=== PATIENT | male | born 1945 | race American Indian/Alaskan Native ===

== ENCOUNTER 2017-06-26 12:54 | Inpatient (IN) | payer MEDICARE ==
[2017-06-26] MEDS ORDERED: DILAUDID IV PRN (13:28)
[2017-06-26] MEDS ORDERED: D50W (25GM) Syringe IV PRN (14:21)
[2017-06-26] MEDS ORDERED: LOVENOX SUB-Q SCH (16:00)
[2017-06-26 16:54] LABS: Basophils % (Auto) 0.9 % (0.0-1.8); Eosinophils % (Auto) 1.8 % (0.0-4.3); Hematocrit 48.1 % (35.5-45.6); Hemoglobin 15.5 gm/dl (11.8-15.2); Mean Corpuscular HGB Conc 32 % (32-34); Mean Corpuscular Hemoglobin 28 pg (28-32); Mean Corpuscular Volume 87 fl (84-94); Platelet Count 272 K/mm3 (140-440); Red Blood Count 5.52 M/mm3 (3.65-5.03); Red Cell Distribution Width 17.2 % (13.2-15.2); White Blood Count 9.1 K/mm3 (4.5-11.0)
[2017-06-26 17:05] LABS: Alanine Aminotransferase 26 units/L (7-56); Albumin 4.5 g/dL (3.9-5); Albumin/Globulin Ratio 1.4 %; Alkaline Phosphatase 118 units/L (35-129); Anion Gap 22 mmol/L; BUN/Creatinine Ratio 16; Blood Urea Nitrogen 18 mg/dL (9-20); Calcium 9.7 mg/dL (8.4-10.2); Carbon Dioxide 26 mmol/L (22-30); Chloride 99.4 mmol/L (98-107); Glucose 211 mg/dL (75-100); Potassium 3.1 mmol/L (3.6-5.0); Sodium 144 mmol/L (137-145); Total Protein 7.8 g/dL (6.3-8.2)
[2017-06-26] MEDS: D5NS 1,000 ML IV SCH (17:15)
[2017-06-26] MEDS: NOVOLOG SUB-Q SCH (19:07)
--- NOTE | 2017-06-26 22:04 | Event Note ---
Date: 06/26/17 See dictated H/p in reports Acute cholecystitis
[2017-06-26] MEDS ORDERED: TYLENOL PO PRN (23:00)
[2017-06-26] MEDS ORDERED: ZOFRAN IV PRN (23:00)
[2017-06-26] MEDS ORDERED: MILK OF MAGNESIA PO PRN (23:00)
[2017-06-26] MEDS ORDERED: DULCOLAX PR PRN (23:00)
[2017-06-27] MEDS: NOVOLOG SUB-Q SCH ×3 (04:17→17:49)
[2017-06-27] MEDS: D5NS 1,000 ML IV SCH (04:18)
[2017-06-27] MEDS: PEPCID IV SCH ×3 (04:30→22:49)
--- NOTE | 2017-06-27 06:22 | Ultrasound Report ---
FINAL REPORT PROCEDURE: US ABDOMEN LIMITED TECHNIQUE: Real-time sonography in multiple planes of the gallbladder fossa and CBD with imaging of the adjacent liver, pancreas, and right kidney was performed with image documentation. CPT 28252 HISTORY: RT. ABDOMINAL PAIN COMPARISON: No prior studies are available for comparison. FINDINGS: Liver: Liver is heterogeneous and hyperechoic suggesting fatty infiltration. There is no discrete mass. Liver was not measured.. Gallbladder: Fluid filled. No gallstones, wall thickening, or pericholecystic fluid. Patient reports positive sonographic Jolley sign. Intrahepatic bile ducts: Normal . Extrahepatic bile ducts: Normal . Pancreas: Normal as visualized with suboptimal depiction of the pancreatic tail. Right kidney: Normal echotexture. No focal renal mass, calculus, or hydronephrosis. Other: No free fluid. IMPRESSION: There are no gallstones. There is no wall thickening or pericholecystic fluid. The bile ducts are normal in caliber. The liver is fatty.
[2017-06-27] MEDS ORDERED: CATAPRES-TTS PATCH TD SCH (10:00)
--- NOTE | 2017-06-27 10:32 | Consultation ---
History of Present Illness Consult date: 06/27/17 Reason for consult: abdominal pain Requesting physician: NGA EDWARDS Chief complaint: abd pain - History of present illness History of present illness: attempted to see patient at 1015 but out of room for CT scan. Patient is a 71-year-old male with a past medical history diabetes and hypertension who presented to the hospital with complaints of right upper quadrant pain for the last 4 days. The patient states the pain started 4 days prior to presentation, was sharp in nature, and constant. He states he had large meals during Thanksgiving time. He has never had pain like this in the past. He states that this pain is also associated with a intermittent pain in the left upper quadrant which quickly resolved. The pain now is dull. He denies any episodes of nausea or emesis. No fevers, chills. No chest pain or shortness of breath. He also complains of dysuria and increased frequency in urination. The patient is currently tolerating a clear liquid diet Past History Past Medical History: diabetes, hypertension Past Surgical History: tonsillectomy Social history: no significant social history Family history: no significant family history Medications and Allergies Allergies Allergy/AdvReac Type Severity Reaction Status Date / Time No Known Allergies Allergy Unverified 06/26/17 12:58 Home Medications Medication Instructions Recorded Confirmed Last Taken Type Diltiazem ER 240 mg PO DAILY 06/26/17 06/26/17 06/26/17 History 240mg Hydrochlorothiazide 25 mg PO DAILY 06/26/17 06/26/17 06/26/17 History 25mg Jentadueto 2.5 mg-1000 mg 2.5 mg PO BID 06/26/17 06/26/17 06/26/17 History Losartan 100 mg PO DAILY 06/26/17 06/26/17 06/26/17 History Active Meds: Active Medications Acetaminophen (Tylenol) 650 mg PO Q4H PRN PRN Reason: Pain MILD(1-3)/Fever >100.5/FINNEGAN Bisacodyl (Dulcolax) 10 mg MO QDAY PRN PRN Reason: Constipation unrelieved by MOM Clonidine HCl (Catapres-Tts Patch) 0.2 mg TD We WALKER Dextrose (D50w (25gm) Syringe) 50 ml IV PRN PRN PRN Reason: Hypoglycemia Enoxaparin Sodium (Lovenox) 40 mg SUB-Q QDAY@2200 WALKER Famotidine (Pepcid) 20 mg IV BID WALKER Last Admin: 06/27/17 04:30 Dose: 20 mg Hydromorphone HCl (Dilaudid) 1 mg IV Q3H PRN PRN Reason: Pain, Moderate (4-6) Last Admin: 06/26/17 15:28 Dose: 1 mg Dextrose/Sodium Chloride (D5ns) 1,000 mls @ 100 mls/hr IV DIRECT WALKER Last Admin: 06/27/17 04:18 Dose: 100 mls/hr Insulin Aspart (Novolog) 0 units SUB-Q Q6HR WALKER PRN Reason: Protocol Last Admin: 06/27/17 04:17 Dose: Not Given Magnesium Hydroxide (Milk Of Magnesia) 30 ml PO Q4H PRN PRN Reason: Constipation Ondansetron HCl (Zofran) 4 mg IV Q8H PRN PRN Reason: N/V unrelieved by Reglan Review of Systems All systems: negative (see hpi) Exam Vital Signs Resp Pulse Ox 18 95 06/26/17 14:33 06/26/17 14:33 Narrative exam: Renal: Awake, alert, oriented 3. No apparent distress CV: S1, S2 present Respiratory: No audible wheezes Abdomen: Soft, obese, nondistended. There is mild tenderness to palpation in the right upper quadrant without rebound rigidity or guarding. There is a reducible, nontender umbilical hernia. Cavities: No clubbing, cyanosis, edema Results - Labs 06/26/17 15:45 06/26/17 14:42 Abnormal lab results 06/26/17 06/26/17 06/26/17 Range/Units 14:42 14:42 15:45 RBC 5.52 H (3.65-5.03) M/mm3 Hgb 15.5 H (11.8-15.2) gm/dl Hct 48.1 H (35.5-45.6) % RDW 17.2 H (13.2-15.2) % Potassium 3.1 L (3.6-5.0) mmol/L Glucose 211 H (75-100) mg/dL POC Glucose (70-105) Hemoglobin A1c 7.1 H (4-6) % 06/26/17 06/26/17 06/26/17 Range/Units 16:05 16:41 19:09 RBC (3.65-5.03) M/mm3 Hgb (11.8-15.2) gm/dl Hct (35.5-45.6) % RDW (13.2-15.2) % Potassium (3.6-5.0) mmol/L Glucose (75-100) mg/dL POC Glucose 172 H 162 H 210 H (70-105) Hemoglobin A1c (4-6) % 06/26/17 06/27/17 Range/Units 22:08 04:03 RBC (3.65-5.03) M/mm3 Hgb (11.8-15.2) gm/dl Hct (35.5-45.6) % RDW (13.2-15.2) % Potassium (3.6-5.0) mmol/L Glucose (75-100) mg/dL POC Glucose 233 H 170 H (70-105) Hemoglobin A1c (4-6) % Diabetes panel 06/26/17 06/26/17 Range/Units 14:42 14:42 Sodium 144 (137-145) mmol/L Potassium 3.1 L (3.6-5.0) mmol/L Chloride 99.4 (98-107) mmol/L Carbon Dioxide 26 (22-30) mmol/L BUN 18 (9-20) mg/dL Creatinine 1.1 (0.8-1.5) mg/dL Glucose 211 H (75-100) mg/dL Hemoglobin A1c 7.1 H (4-6) % Calcium 9.7 (8.4-10.2) mg/dL AST 20 (5-40) units/L ALT 26 (7-56) units/L Alkaline Phosphatase 118 (35-129) units/L Total Protein 7.8 (6.3-8.2) g/dL Albumin 4.5 (3.9-5) g/dL Thyroid panel 06/26/17 Range/Units 14:42 TSH 0.823 (0.270-4.200) mlU/mL Calcium panel 06/26/17 Range/Units 14:42 Calcium 9.7 (8.4-10.2) mg/dL Albumin 4.5 (3.9-5) g/dL Pituitary panel 06/26/17 06/26/17 Range/Units 14:42 14:42 Sodium 144 (137-145) mmol/L Potassium 3.1 L (3.6-5.0) mmol/L Chloride 99.4 (98-107) mmol/L Carbon Dioxide 26 (22-30) mmol/L BUN 18 (9-20) mg/dL Creatinine 1.1 (0.8-1.5) mg/dL Glucose 211 H (75-100) mg/dL Calcium 9.7 (8.4-10.2) mg/dL TSH 0.823 (0.270-4.200) mlU/mL Adrenal panel 06/26/17 Range/Units 14:42 Sodium 144 (137-145) mmol/L Potassium 3.1 L (3.6-5.0) mmol/L Chloride 99.4 (98-107) mmol/L Carbon Dioxide 26 (22-30) mmol/L BUN 18 (9-20) mg/dL Creatinine 1.1 (0.8-1.5) mg/dL Glucose 211 H (75-100) mg/dL Calcium 9.7 (8.4-10.2) mg/dL Total Bilirubin 0.20 (0.1-1.2) mg/dL AST 20 (5-40) units/L ALT 26 (7-56) units/L Alkaline Phosphatase 118 (35-129) units/L Total Protein 7.8 (6.3-8.2) g/dL Albumin 4.5 (3.9-5) g/dL - Imaging CT scan - abdomen: report reviewed, image reviewed (No acute intra-abdominal pathology.) CT scan - pelvis: report reviewed, image reviewed US - abdomen: report reviewed, image reviewed (Fluid-filled gallbladder. NO Gallbladder wall thickening, stones, or pericholecystic fluid.) Assessment and Plan -year-old male with right upper quadrant pain, dysuria 1. Imaging and labs reviewed - no evidence of acute cholecystitis 2. Patient is tolerating a liquid diet -> adv to low fat diet this PM for dinner 3. Pt councelled on low fat diet 4. ok for dc from surgery standpoint if tolerates a diet, may follow up electively for cholecystectomy if he chooses 5. urinalysis
--- NOTE | 2017-06-27 11:05 | Cat Scan Report ---
CT ABDOMEN AND PELVIS WITH CONTRAST INDICATION: Right upper quadrant pain. COMPARISON: RUQ ultrasound from yesterday and 12/23/2011 CT. FINDINGS: Abdomen and pelvis CT performed following oral contrast and intravenous administration of 100 cc of Omnipaque 300. LUNG BASES: Slight nonspecific distal esophageal prominence/thickening again noted. No effusions. Normal heart size. ABDOMEN: Liver again visually somewhat hypodense and possibly fat infiltrated. Indeterminate 3 mm right lower hepatic hypodensity, axial image 27, series 2. Otherwise unremarkable liver, spleen, gallbladder, pancreas, adrenals, non-aneurysmal abdominal aorta with atherosclerotic aortoiliac calcifications, IVC and non-hydronephrotic kidneys. No ascites or size significant adenopathy. Opacified GI tract nonobstructive. Normal appendix. Small fat-containing umbilical hernia again seen with a transverse neck of 1.6 cm. PELVIS: Prominent/mildly enlarged prostate creating an impression at the bladder base may again be correlated for clinically and with PSA. Tiny prostatic calcifications. Otherwise grossly unremarkable urinary bladder and seminal vesicles. Mild rectosigmoid stool. Mild distal descending colon and proximal sigmoid diverticulosis. No free fluid or significant adenopathy. Approximately 3.2 cm fat-containing right inguinal hernia again partially imaged, axial image 87. Multilevel spinal degenerative changes, including lower thoracic right-sided osteophytes and lower lumbar facet arthropathy. CONCLUSION: No acute CT abnormality or significant interval change with various incidental findings, including possible fatty hepatic infiltration, diverticulosis and fat containing umbilical and right inguinal hernias again noted, amongst others, as detailed above. Thank you for the opportunity to participate in this patient's care.
--- NOTE | 2017-06-27 11:38 | History and Physical Report ---
The patient has a right upper quadrant pain for the past 3-4 days. HISTORY OF PRESENT ILLNESS: A 71-year-old male with hypertension, type 2 diabetes who comes in for right upper quadrant and epigastric pain for the last 4 days. Associated with nausea, but no vomiting. Pain is about 8 on a scale of 1-10. No constipation. Pain is sharp in nature, mostly in the right upper quadrant, but sometimes radiating into the epigastric region. No fever, no chills. PAST MEDICAL HISTORY: As mentioned, hypertension and type 2 diabetes. PAST SURGICAL HISTORY: None. SOCIAL HISTORY: Does not smoke, no alcohol, no recreational drugs. FAMILY HISTORY: Hypertension. REVIEW OF SYSTEMS: Significant for right upper quadrant pain, which is 8/10, associated with nausea. Otherwise, review of systems is essentially negative. PHYSICAL EXAMINATION: GENERAL: Elderly male, cooperative during examination. VITAL SIGNS: Blood pressure is 154/76, temperature is 98.4, pulse is 82, respirations are 18. HEENT: Unremarkable. Pupils equal and reactive. NECK: Supple, no lymphadenopathy, no thyromegaly. LUNGS: Clear to auscultation and percussion. Good air entry. CARDIOVASCULAR: S1, S2 heard. No gallop, no murmur, no rub. Apical impulse in left fifth intercostal space and midclavicular line. ABDOMEN: Soft, tender in the right upper quadrant region, in the epigastric region. No guarding, no rebound tenderness. Hernial orifices are normal. Bowel sounds are normal. EXTREMITIES: Good pedal pulses. CENTRAL NERVOUS SYSTEM: Alert and oriented x 4, nonfocal exam. LABORATORY DATA: Significant for white count of 9100; H and H is 15.5 and 48.8; platelet count is 272,000. Glucose is 210, 233 and 170. A1c is 7.1. Potassium is 3.1, otherwise electrolytes are normal. ASSESSMENT AND PLAN: 1. Acute cholecystitis. Ultrasound shows fluid filled gallbladder, no gallstones, no wall thickening. Intrahepatic bile ducts, left and right hepatic bile ducts are normal. The impression was no gallstones and no wall thickening or pericholecystic fluid. We will treat as acute cholecystitis ____ the patient. Pain control in the meantime. Dilaudid 1 mg q. 3 hours and Zofran 4 mg q. 3 hours p.r.n. We will defer to Dr. Whippel who is a surgeon in the hospital. 2. Hypertension. Continue hydrochlorothiazide and diltiazem, but we have kept on hold and also losartan. We will put the patient on Catapres patch TTS 2 q. weekly. 3. Type 2 diabetes. We will hold the Epi and continue him on insulin a.c. and at bedtime and moderate dose sliding scale protocol. JOB# [id number] VSM/NTS
--- NOTE | 2017-06-27 16:24 | Progress Note ---
Assessment and Plan - Patient Problems (1) Acute abdominal pain Current Visit: Yes Status: Acute Plan to address problem: Nearly resolved Cholecystitis ruled out.Advance diet as tolerated Surgery consult appreciated (2) HTN (hypertension) Current Visit: Yes Status: Chronic Qualifiers: Hypertension type: essential hypertension Qualified Code(s): I10 - Essential (primary) hypertension Plan to address problem: Antihypertensives resumed (3) T2DM (type 2 diabetes mellitus) Current Visit: Yes Status: Chronic Qualifiers: Diabetes mellitus complication status: without complication Diabetes mellitus joint terminal attack controller insulin use: without joint terminal attack controller use Qualified Code(s): E11.9 - Type 2 diabetes mellitus without complications Plan to address problem: Adjust hypoglycemics Patient josesito Chowdary To Follow with DR Patel (4) Hypokalemia Current Visit: Yes Status: Acute Plan to address problem: Supplemented (5) Discharge planning issues Current Visit: Yes Status: Acute Plan to address problem: Probable discharge tomorrow (6) DVT prophylaxis Current Visit: Yes Status: Acute Plan to address problem: On Lovenox Subjective Date of service: 06/27/17 Principal diagnosis: Acute cholecystitis Interval history: Abd pain better.Tolerating clear liquids Objective - Constitutional Vitals: Vital Signs - 12hr 06/27/17 06/27/17 06/27/17 07:27 07:30 10:53 Temperature 98.6 F Pulse Rate 66 61 Respiratory 18 Rate Blood Pressure 150/71 Blood Pressure 150/71 [Left] O2 Sat by Pulse 96 94 Oximetry 06/27/17 06/27/17 15:35 15:36 Temperature 98.3 F Pulse Rate 71 73 Respiratory 20 Rate Blood Pressure Blood Pressure 151/62 [Left] O2 Sat by Pulse 95 95 Oximetry General appearance: Present: no acute distress, well-nourished - EENT Eyes: PERRL, EOM intact ENT: hearing intact, clear oral mucosa Ears: bilateral: normal - Neck Neck: supple, normal ROM - Respiratory Respiratory effort: normal Respiratory: bilateral: CTA - Breasts Breasts: normal - Cardiovascular Rhythm: regular Heart Sounds: Present: S1 & S2. Absent: gallop, rub Extremities: pulses intact, No edema, normal color, Full ROM - Gastrointestinal General gastrointestinal: Present: soft, non-tender, non-distended, normal bowel sounds - Genitourinary Male genitourinary: normal - Integumentary Integumentary: clear, warm, dry - Musculoskeletal Musculoskeletal: 1, strength equal bilaterally - Neurologic Neurologic: moves all extremities - Psychiatric Psychiatric: memory intact, appropriate mood/affect, intact judgment & insight - Labs CBC & Chem 7: 06/26/17 15:45 06/26/17 14:42 Labs: Abnormal lab results 06/26/17 06/26/17 06/26/17 Range/Units 14:42 14:42 15:45 RBC 5.52 H (3.65-5.03) M/mm3 Hgb 15.5 H (11.8-15.2) gm/dl Hct 48.1 H (35.5-45.6) % RDW 17.2 H (13.2-15.2) % Potassium 3.1 L (3.6-5.0) mmol/L Glucose 211 H (75-100) mg/dL POC Glucose (70-105) Hemoglobin A1c 7.1 H (4-6) % 06/26/17 06/26/17 06/26/17 Range/Units 16:05 16:41 19:09 RBC (3.65-5.03) M/mm3 Hgb (11.8-15.2) gm/dl Hct (35.5-45.6) % RDW (13.2-15.2) % Potassium (3.6-5.0) mmol/L Glucose (75-100) mg/dL POC Glucose 172 H 162 H 210 H (70-105) Hemoglobin A1c (4-6) % 06/26/17 06/27/17 06/27/17 Range/Units 22:08 04:03 11:24 RBC (3.65-5.03) M/mm3 Hgb (11.8-15.2) gm/dl Hct (35.5-45.6) % RDW (13.2-15.2) % Potassium (3.6-5.0) mmol/L Glucose (75-100) mg/dL POC Glucose 233 H 170 H 185 H (70-105) Hemoglobin A1c (4-6) %
[2017-06-27 16:55] LABS: Bilirubin,Urine NEG (Negative); Blood,Urine NEG (Negative); Ketones,Urine NEG (Negative); Leukocyte Esterase,Urine NEG (Negative); Mucus,Urine FEW /HPF; Nitrite,Urine NEG (Negative); Protein,Urine <15 mg/dL mg/dL (Negative); Urobilinogen,Urine < 2.0 mg/dL (<2.0); WBC,Urine < 1.0 /HPF (0.0-6.0)
[2017-06-27] MEDS ORDERED: LOVENOX SUB-Q SCH (22:00)
[2017-06-28] MEDS: NOVOLOG SUB-Q SCH ×2 (00:44→06:39)
[2017-06-28 07:45] VITALS: BP 157/78
[2017-06-28] MEDS ORDERED: K-DUR PO ONE (07:45)
[2017-06-28] MEDS ORDERED: JENTADUETO PO SCH (10:00)
[2017-06-28] MEDS ORDERED: DILTIAZEM 240 MG PO SCH (10:00)
--- NOTE | 2017-06-28 10:08 | Discharge Summary ---
Providers - Providers Date of Admission: 06/26/17 14:01 Date of discharge: 06/28/17 Attending physician: CHENTE LARKIN MD 06/26/17 23:01 Consult to Physician [CONS] Routine Consulting Provider: MERLY MERRITT Reason For Exam: Ruq pain Place consult to:: answering service Notified:: yes If yes, spoke with:: gaudencio Time called:: 08:05 Comment:: rosie Primary care physician: ALISTAIR BUCHANAN Hospitalization Reason for admission: abdominal pain Pertinent studies: Abdominal ultrasound, negative for acute cholecystitis or cholelithiasis. CT abdomen and pelvis - No acute CT abnormality or significant interval change with various incidental findings, including possible fatty hepatic infiltration, diverticulosis and fat-containing umbilical and right inguinal hernias again noted. Hospital course: 71 year old male with past medical history significant for hypertension, type 2 diabetes mellitus presented for the complaints of right upper quadrant and epigastric pain for the last 4 days. The pain was associated with nausea and vomiting. Pain was sharp in nature and 8 out of 10 in its maximum. No fever or chills. Patient was admitted and managed appropriately for abdominal pain. Surgery was consulted and patient doesn't need any intervention at this time. Acute cholecystitis was ruled out. Patient's abdominal pain subsided, patient tolerated diet. Patient was counseled about avoid fatty diets. Patient was hemodynamically stable at the time of discharge. Patient said he has enough medications at home and doesn't need any refills. I also deemed to be scheduled with the surgeon in case if he needs elective cholecystectomy, he said if he has pain he will schedule himself. Disposition: TO HOME OR SELFCARE Time spent for discharge: 31 minutes - Discharge Diagnoses (1) Acute abdominal pain Status: Acute (2) Hypokalemia Status: Acute (3) HTN (hypertension) Status: Chronic Qualifiers: Hypertension type: essential hypertension Qualified Code(s): I10 - Essential (primary) hypertension (4) T2DM (type 2 diabetes mellitus) Status: Chronic Qualifiers: Diabetes mellitus complication status: without complication Diabetes mellitus skilled nursing insulin use: without skilled nursing use Qualified Code(s): E11.9 - Type 2 diabetes mellitus without complications (5) Acute cholecystitis Status: Ruled-out Core Measure Documentation - Palliative Care Palliative Care/ Comfort Measures: Not Applicable - Core Measures Any of the following diagnoses?: none Exam - Constitutional Vitals: Temp Pulse Resp BP Pulse Ox 98.1 F 62 18 157/78 94 06/28/17 07:42 06/28/17 07:42 06/28/17 07:42 06/28/17 07:42 06/28/17 07:42 Plan Activity: no restrictions Weight Bearing Status: Full Weight Bearing Diet: low cholesterol, low salt, diabetic Follow up with: ALISTAIR BUCHANAN MD [Primary Care Provider] - 7 Days
[2017-06-28] MEDS: PEPCID IV SCH (10:30)
[2017-06-28] MEDS ORDERED: CARDIZEM CD PO SCH (12:00)
[2017-06-28] MEDS ORDERED: GLUCOPHAGE PO SCH (22:00)
[2017-06-28] MEDS ORDERED: TRADJENTA PO SCH (22:00)
[2017-06-29] MEDS ORDERED: HCTZ PO SCH (10:00)
[2017-06-29] MEDS ORDERED: COZAAR PO SCH (10:00)
== END 2017-06-28 11:55 | disposition home or self-care (01) | DRG 392 ==
LOC: 2B-ACE 12:54 → UNDOADMIN 12:54 → 2B-ACE 14:01
PROVIDERS: ADMIT Internal Medicine; ATTEND Internal Medicine
DX: R10.11 Right upper quadrant pain (principal); R30.0 Dysuria; I10 Essential (primary) hypertension; E11.9 Type 2 diabetes mellitus without complications; E87.6 Hypokalemia; R10.13 Epigastric pain; R11.2 Nausea with vomiting, unspecified; Z82.49 Family history of ischemic heart disease and other diseases of the circulatory system; Z79.899 Other long term (current) drug therapy
CPT/HCPCS: 36415; 74177; 76705; 80053; 81001; 82962; 83036; 84443; 85025; J1170; J1650; J1815; J7042; Q9967

== ENCOUNTER 2019-03-05 12:04 | Outpatient (CLI) | payer MEDICARE ==
--- NOTE | 2019-03-05 14:30 | Ultrasound Report ---
ULTRASOUND TESTICULAR DOPPLER COMPLETE HISTORY: Scrotal pain. TECHNIQUE: Grayscale ultrasound with color and spectral Doppler imaging. COMPARISON: None. FINDINGS: The right testicle measures 2.7 x 1.7 x 1.7 cm. There are 2 cysts in the right testicle measuring 1.1 cm and 0.8 cm. No testicular mass. The right epididymis is unremarkable. The left testicle measures 2.4 x 1.3 x 2.3 cm. There are also 2 cysts in the left testicle measuring 0.6 cm and 0.3 cm. No testicular mass. The left epididymis is unremarkable. No evidence for significant hydrocele or varicocele. Spectral Doppler waveforms demonstrate arterial flow bilaterally. IMPRESSION: Bilateral testicular cysts as described. Signer Name: Clayton Hernandez Jr, MD Signed: 03/05/2019 2:26 PM Workstation Name: [id number]
== END 2019-03-05 12:05 | disposition home or self-care (01) ==
LOC: US 12:04
PROVIDERS: ATTEND Urology
DX: N44.2 Benign cyst of testis (principal); E11.9 Type 2 diabetes mellitus without complications; E66.9 Obesity, unspecified; I10 Essential (primary) hypertension
CPT/HCPCS: 93975

== ENCOUNTER 2020-10-02 11:28 | Inpatient (IN) | payer MEDICARE ==
--- NOTE | 2020-10-02 11:45 | Event Note ---
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 Further treatment and workup at subsequent clinical providers discretion. Patient/guardian urged not to elope from the ED as their condition may be serious if not clinically assessed and managed. Initial orders include: labs, ekg, xr
--- NOTE | 2020-10-02 12:12 | XRay Report ---
CHEST 2 VIEWS INDICATION: SOB. COMPARISON: None FINDINGS: SUPPORT DEVICES: None. HEART: Within normal limits. LUNGS/PLEURA: Mild patchy multifocal airspace disease with some symmetry and no pleural effusion. Fin dings could be seen with edema or an atypical process such as viral disease. No pneumothorax. ADDITIONAL FINDINGS: None. IMPRESSION: 1. Pulmonary findings as above. Signer Name: Tino Gutierrez MD Signed: 10/02/2020 12:07 PM Workstation Name: [id number]
--- NOTE | 2020-10-02 12:18 | Emergency Department Report ---
HPI - General Chief Complaint: Dyspnea/Respdistress Time Seen by Provider: 10/02/20 11:42 - HPI HPI: This is a 75-year-old -[place] male presents to the emergency department via EMS from home with a complaint of a 3 to 4-day history of progressively worsening shortness of breath. The shortness of breath worsens with any type of exertion. Patient has a past medical history of hypertension, diabetes and obstructive sleep apnea. The patient admits to some recent noncompliance with his CPAP machine. He denies any fever, cough, lower extremity swelling, chest pain, nausea, vomiting, back pain or diaphoresis. He denies being a tobacco smoker. Patient got his first Covid vaccine 3 weeks ago, and got his second vaccine this morning. No recent travel or sick contacts at home. He has not taken anything for his symptoms prior to presentation today. ED Past Medical Hx - Past Medical History Hx Hypertension: Yes Hx Heart Attack/AMI: No Hx Congestive Heart Failure: No Hx Diabetes: Yes Hx Arthritis: Yes Hx Psychiatric Treatment: Yes - Social History Smoking Status: Never Smoker Substance Use Type: None - Medications Home Medications: Home Medications Medication Instructions Recorded Confirmed Last Taken Type Dulaglutide [Trulicity] 0.5 ml SQ 1XW 10/02/20 10/02/20 Unknown History Empagliflozin/Metformin HCl 1 each PO QDAY 10/02/20 10/02/20 Unknown History [Synjardy 12.5-1,000 mg Tablet] Insulin Aspart (Nf) [NovoLOG 15 units SQ ACHS 10/02/20 10/02/20 Unknown History Flexpen] Insulin Glargine,Hum.rec.anlog 15 unit SQ QHS 10/02/20 10/02/20 Unknown History [Basaglar Kwikpen U-100] Nebivolol HCl [Bystolic] 10 mg PO QDAY 10/02/20 10/02/20 Unknown History dilTIAZem HCl [Diltiazem 24Hr ER 240 mg PO QDAY 10/02/20 10/02/20 Unknown History (Cd)] ED Review of Systems ROS: Stated complaint: SOB/ELEVATED BP Other details as noted in HPI Comment: All other systems reviewed and negative Constitutional: denies: chills, fever Eyes: denies: eye pain, vision change ENT: denies: ear pain, throat pain Respiratory: shortness of breath, SOB with exertion Cardiovascular: denies: chest pain, edema Gastrointestinal: denies: abdominal pain, vomiting Genitourinary: denies: dysuria, discharge Musculoskeletal: denies: back pain, arthralgia Skin: denies: rash, lesions Neurological: denies: headache, weakness Physical Exam - Physical Exam Vital Signs: Vital Signs 10/02/20 10/02/20 11:33 11:39 Temperature 98 F 98.3 F Pulse Rate 55 L Respiratory 28 H Rate Blood Pressure 152/57 O2 Sat by Pulse 93 Oximetry Physical Exam: GENERAL: The patient is well-developed well-nourished. HENT: Normocephalic. Atraumatic. Patient has moist mucous membranes. EYES: Extraocular motions are intact. NECK: Supple. Trachea is midline. CHEST/LUNGS: Rhonchi heard bilaterally. There is tachypnea and conversational dyspnea. HEART/CARDIOVASCULAR: Regular. There is no tachycardia. There is no murmur. ABDOMEN: Abdomen is soft, nontender. Patient has normal bowel sounds. Morbidly obese habitus. SKIN: Skin is warm and dry. NEURO: The patient is awake, alert, and oriented. The patient is cooperative. The patient has no focal neurologic deficits. Normal speech. MUSCULOSKELETAL: There is no tenderness or deformity. There is no limitation range of motion. ED Course Vital Signs 10/02/20 10/02/20 11:33 11:39 Temperature 98 F 98.3 F Pulse Rate 55 L Respiratory 28 H Rate Blood Pressure 152/57 O2 Sat by Pulse 93 Oximetry - ABG Interpretation Ph: 7.356 PCO2: 46 PO2: 60 Bicarbonate: 25 Interpretation: other (Hypoxemia) - Pulse Oximetry Interpretation Digit-Finger Initial Pulse Oximetry Readin O2 Sat by Pulse Oximetry: 90 Actions Taken: increased FIO2 to Additional Comments: 2 L nasal cannula. Pulse ox went up to 97%. ED Medical Decision Making - Lab Data Result diagrams: 10/02/20 12:05 10/02/20 12:05 Lab Results 10/02/20 10/02/20 10/02/20 Range/Units 12:05 12:05 12:08 WBC 11.6 H (4.5-11.0) K/mm3 RBC 5.28 H (3.65-5.03) M/mm3 Hgb 14.8 (11.8-15.2) gm/dl Hct 45.7 H (35.5-45.6) % MCV 87 (84-94) fl MCH 28 (28-32) pg MCHC 32 (32-34) % RDW 18.1 H (13.2-15.2) % Plt Count 284 (140-440) K/mm3 Lymph % (Auto) 18.3 (13.4-35.0) % [place] % (Auto) 5.9 (0.0-7.3) % Eos % (Auto) 1.1 (0.0-4.3) % Baso % (Auto) 0.9 (0.0-1.8) % Lymph # (Auto) 2.1 (1.2-5.4) K/mm3 [place] # (Auto) 0.7 (0.0-0.8) K/mm3 Eos # (Auto) 0.1 (0.0-0.4) K/mm3 Baso # (Auto) 0.1 (0.0-0.1) K/mm3 Seg Neutrophils % 73.8 H (40.0-70.0) % Seg Neutrophils # 8.6 H (1.8-7.7) K/mm3 PT 13.4 (12.2-14.9) Sec. INR 1.04 (0.87-1.13) APTT 29.3 (24.2-36.6) Sec. D-Dimer 753.75 H (0-234) ng/mlDDU ABG pH (7.320-7.450) POC ABG pCO2 (32.0-48.0) mmHg POC ABG pO2 (83-108) mmHg POC ABG HCO3 POC ABG Base Excess ABG Hemoglobin (12.0-17.5) ABG Oxyhemoglobin (94-98) ABG Methemoglobin (0.0-1.5) ABG Sodium (136.0-145.0) mmol/L ABG Potassium (3.40-4.50) mmol/L ABG Chloride (98-107) mmol/L ABG Glucose (65-95) mg/dL Carboxyhemoglobin (0.5-1.5) FiO2 Sodium 140 (137-145) mmol/L Potassium 4.1 (3.6-5.0) mmol/L Chloride 105.9 (98-107) mmol/L Carbon Dioxide 23 (22-30) mmol/L Anion Gap 15 mmol/L BUN 11 (9-20) mg/dL Creatinine 0.9 (0.8-1.3) mg/dL Estimated GFR > 60 ml/min BUN/Creatinine Ratio 12 % Glucose 94 (75-100) mg/dL Calcium 8.8 (8.4-10.2) mg/dL Ferritin (30.0-300.0) ng/mL Total Bilirubin 0.40 (0.1-1.2) mg/dL AST 37 (5-40) units/L ALT 68 H (7-56) units/L Alkaline Phosphatase 103 (35-129) units/L Lactate Dehydrogenase (91-180) units/L Troponin T < 0.010 (0.00-0.029) ng/mL C-Reactive Protein (0.00-1.30) mg/dL NT-Pro-B Natriuret Pep 285.9 (0-900) pg/mL Total Protein 7.2 (6.3-8.2) g/dL Albumin 3.8 L (3.9-5) g/dL Albumin/Globulin Ratio 1.1 % Arterial Blood Glucose (65-95) mg/dL Arterial Blood Ionized Calcium (4.6-5.3) mg/dL Urine Color (Yellow) Urine Turbidity (Clear) Urine pH (5.0-7.0) Ur Specific [place] (1.003-1.030) Urine Protein (Negative) mg/dL Urine Glucose (UA) (Negative) mg/dL Urine Ketones (Negative) mg/dL Urine Blood (Negative) Urine Nitrite (Negative) Urine Bilirubin (Negative) Urine Urobilinogen (<2.0) mg/dL Ur Leukocyte Esterase (Negative) Urine WBC (Auto) (0.0-6.0) /HPF Urine RBC (Auto) (0.0-6.0) /HPF U Epithel Cells (Auto) (0-13.0) /HPF Urine Mucus /HPF 10/02/20 10/02/20 10/02/20 Range/Units 12:15 12:26 17:02 WBC (4.5-11.0) K/mm3 RBC (3.65-5.03) M/mm3 Hgb (11.8-15.2) gm/dl Hct (35.5-45.6) % MCV (84-94) fl MCH (28-32) pg MCHC (32-34) % RDW (13.2-15.2) % Plt Count (140-440) K/mm3 Lymph % (Auto) (13.4-35.0) % [place] % (Auto) (0.0-7.3) % Eos % (Auto) (0.0-4.3) % Baso % (Auto) (0.0-1.8) % Lymph # (Auto) (1.2-5.4) K/mm3 [place] # (Auto) (0.0-0.8) K/mm3 Eos # (Auto) (0.0-0.4) K/mm3 Baso # (Auto) (0.0-0.1) K/mm3 Seg Neutrophils % (40.0-70.0) % Seg Neutrophils # (1.8-7.7) K/mm3 PT (12.2-14.9) Sec. INR (0.87-1.13) APTT (24.2-36.6) Sec. D-Dimer (0-234) ng/mlDDU ABG pH 7.356 (7.320-7.450) POC ABG pCO2 46.7 (32.0-48.0) mmHg POC ABG pO2 60.1 L (83-108) mmHg POC ABG HCO3 25.6 POC ABG Base Excess -0.4 ABG Hemoglobin 14.9 (12.0-17.5) ABG Oxyhemoglobin 89.6 L (94-98) ABG Methemoglobin 0.3 (0.0-1.5) ABG Sodium 143.7 (136.0-145.0) mmol/L ABG Potassium 3.8 (3.40-4.50) mmol/L ABG Chloride 109.0 H (98-107) mmol/L ABG Glucose 89 (65-95) mg/dL Carboxyhemoglobin 1.1 (0.5-1.5) FiO2 21.0 Sodium (137-145) mmol/L Potassium (3.6-5.0) mmol/L Chloride (98-107) mmol/L Carbon Dioxide (22-30) mmol/L Anion Gap mmol/L BUN (9-20) mg/dL Creatinine (0.8-1.3) mg/dL Estimated GFR ml/min BUN/Creatinine Ratio % Glucose (75-100) mg/dL Calcium (8.4-10.2) mg/dL Ferritin 424.3 H (30.0-300.0) ng/mL Total Bilirubin (0.1-1.2) mg/dL AST (5-40) units/L ALT (7-56) units/L Alkaline Phosphatase (35-129) units/L Lactate Dehydrogenase (91-180) units/L Troponin T (0.00-0.029) ng/mL C-Reactive Protein (0.00-1.30) mg/dL NT-Pro-B Natriuret Pep (0-900) pg/mL Total Protein (6.3-8.2) g/dL Albumin (3.9-5) g/dL Albumin/Globulin Ratio % Arterial Blood Glucose 89 (65-95) mg/dL Arterial Blood Ionized Calcium 4.7 (4.6-5.3) mg/dL Urine Color Yellow (Yellow) Urine Turbidity Slightly-cloudy (Clear) Urine pH 5.0 (5.0-7.0) Ur Specific [place] 1.030 (1.003-1.030) Urine Protein 100 mg/dl (Negative) mg/dL Urine Glucose (UA) >=500 (Negative) mg/dL Urine Ketones Neg (Negative) mg/dL Urine Blood Neg (Negative) Urine Nitrite Neg (Negative) Urine Bilirubin Neg (Negative) Urine Urobilinogen < 2.0 (<2.0) mg/dL Ur Leukocyte Esterase Neg (Negative) Urine WBC (Auto) 6.0 (0.0-6.0) /HPF Urine RBC (Auto) 2.0 (0.0-6.0) /HPF U Epithel Cells (Auto) 1.0 (0-13.0) /HPF Urine Mucus Few /HPF 10/02/20 Range/Units 17:02 WBC (4.5-11.0) K/mm3 RBC (3.65-5.03) M/mm3 Hgb (11.8-15.2) gm/dl Hct (35.5-45.6) % MCV (84-94) fl MCH (28-32) pg MCHC (32-34) % RDW (13.2-15.2) % Plt Count (140-440) K/mm3 Lymph % (Auto) (13.4-35.0) % [place] % (Auto) (0.0-7.3) % Eos % (Auto) (0.0-4.3) % Baso % (Auto) (0.0-1.8) % Lymph # (Auto) (1.2-5.4) K/mm3 [place] # (Auto) (0.0-0.8) K/mm3 Eos # (Auto) (0.0-0.4) K/mm3 Baso # (Auto) (0.0-0.1) K/mm3 Seg Neutrophils % (40.0-70.0) % Seg Neutrophils # (1.8-7.7) K/mm3 PT (12.2-14.9) Sec. INR (0.87-1.13) APTT (24.2-36.6) Sec. D-Dimer (0-234) ng/mlDDU ABG pH (7.320-7.450) POC ABG pCO2 (32.0-48.0) mmHg POC ABG pO2 (83-108) mmHg POC ABG HCO3 POC ABG Base Excess ABG Hemoglobin (12.0-17.5) ABG Oxyhemoglobin (94-98) ABG Methemoglobin (0.0-1.5) ABG Sodium (136.0-145.0) mmol/L ABG Potassium (3.40-4.50) mmol/L ABG Chloride (98-107) mmol/L ABG Glucose (65-95) mg/dL Carboxyhemoglobin (0.5-1.5) FiO2 Sodium (137-145) mmol/L Potassium (3.6-5.0) mmol/L Chloride (98-107) mmol/L Carbon Dioxide (22-30) mmol/L Anion Gap mmol/L BUN (9-20) mg/dL Creatinine (0.8-1.3) mg/dL Estimated GFR ml/min BUN/Creatinine Ratio % Glucose (75-100) mg/dL Calcium (8.4-10.2) mg/dL Ferritin (30.0-300.0) ng/mL Total Bilirubin (0.1-1.2) mg/dL AST (5-40) units/L ALT (7-56) units/L Alkaline Phosphatase (35-129) units/L Lactate Dehydrogenase 391 H (91-180) units/L Troponin T (0.00-0.029) ng/mL C-Reactive Protein 3.20 H (0.00-1.30) mg/dL NT-Pro-B Natriuret Pep (0-900) pg/mL Total Protein (6.3-8.2) g/dL Albumin (3.9-5) g/dL Albumin/Globulin Ratio % Arterial Blood Glucose (65-95) mg/dL Arterial Blood Ionized Calcium (4.6-5.3) mg/dL Urine Color (Yellow) Urine Turbidity (Clear) Urine pH (5.0-7.0) Ur Specific [place] (1.003-1.030) Urine Protein (Negative) mg/dL Urine Glucose (UA) (Negative) mg/dL Urine Ketones (Negative) mg/dL Urine Blood (Negative) Urine Nitrite (Negative) Urine Bilirubin (Negative) Urine Urobilinogen (<2.0) mg/dL Ur Leukocyte Esterase (Negative) Urine WBC (Auto) (0.0-6.0) /HPF Urine RBC (Auto) (0.0-6.0) /HPF U Epithel Cells (Auto) (0-13.0) /HPF Urine Mucus /HPF - EKG Data -: EKG Interpreted by Me EKG shows normal: sinus rhythm, axis, intervals, QRS complexes (RBBB), ST-T waves Rate: bradycardia (52 bpm) - EKG Data When compared to previous EKG there are: previous EKG unavailable Interpretation: other (Sinus bradycardia at 52 bpm, RBBB. No STEMI) - Radiology Data Radiology results: report reviewed, image reviewed interpreted by me: Chest x-ray shows some patchy bilateral infiltrates concerning for pneumonia. Mild cardiomegaly. No pneumothorax. CTA CHEST WITH IV CONTRAST INDICATION: Shortness of breath, elevated d-dimer, Covid 19. TECHNIQUE: Axial CT images were obtained through the chest after injection of 100 cc Omnipaque 350 IV contrast. 3 plane MIP reconstructions were produced. All CT scans at this location are performed using CT dose reduction for ALARA by means of automated exposure control. COMPARISON: 2 views of the chest from earlier today. FINDINGS: PULMONARY ARTERIES: No pulmonary emboli. AORTA AND ARTERIES: No acute abnormality. Moderate calcification is seen along the aorta and coronary arteries. The aorta is normal in caliber. HEART: No significant abnormality. MEDIASTINUM: Shotty mediastinal nodes are present. The trachea and main bronchi are patent and normal in caliber. LUNGS: There is dependent bilateral atelectasis with additional scattered mild bilateral ground glass opacities that likely represent edema. No dense area of consolidation suggestive of pneumonia is noted. No suspicious nodule or mass. Small right pleural effusion. No pneumothorax. ADDITIONAL FINDINGS: None. UPPER ABDOMEN: No acute findings. BONES: No significant osseous abnormality. IMPRESSION: 1. No CT evidence for pulmonary embolism. 2. Probable mild pulmonary edema with a small right pleural effusion. 3. Additional findings as above. - Medical Decision Making This patient presents with a 2 to 3-day history of aggressively worsening shortness of breath. It is obvious that it worsens with exertion as the patient had increased tachypnea and conversational dyspnea after just getting out of the wheelchair and into the gurney. He has mild rhonchi heard bilaterally. The patient's initial room air pulse ox was at 90%. After the patient had an ABG wa s placed on 2 L nasal cannula and went up to about 97%. ABG does not show any acid-base disturbances but does show hypoxemia. Chest x-ray shows patchy bilateral infiltrates concerning for pneumonia versus interstitial edema. The patient does not appear in any significant or decompensated CHF as the BNP level is 285. Most of the patient's initial labs were unremarkable including CBC, metabolic panel, troponin level, BNP and urinalysis, but the D-dimer level was elevated. For this reason a CT angiography of the chest was done that did not show any pulmonary embolism but once again shows patchy bilateral infiltrates. A blood culture was sent and the patient was started on antibiotics. He was also given a dose of Solu-Medrol to treat possible and/or suspected COVID-19. The Covid labs were sent and these inflammatory markers did come back elevated including CRP, LDH, ferritin. The patient will be admitted to the hospital for further evaluation and treatment and was accepted for admission by the hospitalist, Dr. Gray. The patient was placed in patient isolation and droplet precautions immediately upon arrival to the main emergency department. I wore full PPE gear including a surgical hat, goggles, N95 mask, surgical mask, gown, and double gloves for every encounter. Critical Care Time: Yes Critical care time in (mins) excluding proc time.: 35 Critical care attestation.: If time is entered above; I have spent that time in minutes in the direct care of this critically ill patient, excluding procedure time. Critical care time was spent on this patient in doing his initial evaluation, multiple reevaluations, ordering interpretation of labs and imaging, IV antibiotics and IV steroids, supplemental oxygen for the hypoxia/hypoxemia, multiple discussions with the patient. Critical Care Time: 35 minutes ED Disposition Clinical Impression: Suspected 2019 novel coronavirus infection, Acute hypoxemic respiratory failure, HTN (hypertension), Obesity hypoventilation syndrome Disposition: 09 OP ADMIT IP TO THIS HOSP Is pt being admited?: Yes Condition: Serious Instructions: Hypertension (ED) Time of Disposition: 19:37
[2020-10-02 12:42] LABS: Basophils # (Auto) 0.1 K/mm3 (0.0-0.1); Basophils % (Auto) 0.9 % (0.0-1.8); Eosinophils # (Auto) 0.1 K/mm3 (0.0-0.4); Eosinophils % (Auto) 1.1 % (0.0-4.3); Hematocrit 45.7 % (35.5-45.6); Hemoglobin 14.8 gm/dl (11.8-15.2); Lymphocytes # (Auto) 2.1 K/mm3 (1.2-5.4); Lymphocytes % (Auto) 18.3 % (13.4-35.0); Mean Corpuscular HGB Conc 32 % (32-34); Mean Corpuscular Volume 87 fl (84-94); Monocytes # (Auto) 0.7 K/mm3 (0.0-0.8); Monocytes % (Auto) 5.9 % (0.0-7.3); Platelet Count 284 K/mm3 (140-440); Red Blood Count 5.28 M/mm3 (3.65-5.03); Red Cell Distribution Width 18.1 % (13.2-15.2)
[2020-10-02 12:46] LABS: Alanine Aminotransferase 68 units/L (7-56); Albumin 3.8 g/dL (3.9-5); BUN/Creatinine Ratio 12; Blood Urea Nitrogen 11 mg/dL (9-20); Calcium 8.8 mg/dL (8.4-10.2); Hemolysis Index 20
[2020-10-02 12:49] LABS: INR 1.04 (0.87-1.13)
[2020-10-02 12:50] LABS: Partial Thromboplastin Time 29.3 Sec. (24.2-36.6)
[2020-10-02 13:03] LABS: Bilirubin,Urine NEG (Negative); Blood,Urine NEG (Negative); Color,Urine Yellow (Yellow); Mucus,Urine FEW /HPF; Urobilinogen,Urine < 2.0 mg/dL (<2.0)
--- NOTE | 2020-10-02 15:29 | Cat Scan Report ---
CTA CHEST WITH IV CONTRAST INDICATION: Shortness of breath, elevated d-dimer, Covid 19. TECHNIQUE: Axial CT images were obtained through the chest after injection of 100 cc Omnipaque 350 IV contrast. 3 plane MIP reconstructions were produced. All CT scans at this location are performed using CT dose reduction for ALARA by means of automated exposure control. COMPARISON: 2 views of the chest from earlier today. FINDINGS: PULMONARY ARTERIES: No pulmonary emboli. AORTA AND ARTERIES: No acute abnormality. Moderate calcification is seen along the aorta and coronary arteries. The aorta is normal in caliber. HEART: No significant abnormality. MEDIASTINUM: Shotty mediastinal nodes are present. The trachea and main bronchi are patent and normal in caliber. LUNGS: There is dependent bilateral atelectasis with additional scattered mild bilateral ground glass opacities that likely represent edema. No dense area of consolidation suggestive of pneumonia is not ed. No suspicious nodule or mass. Small right pleural effusion. No pneumothorax. ADDITIONAL FINDINGS: None. UPPER ABDOMEN: No acute findings. BONES: No significant osseous abnormality. IMPRESSION: 1. No CT evidence for pulmonary embolism. 2. Probable mild pulmonary edema with a small right pleural effusion. 3. Additional findings as above. Signer Name: Jayme Kraus MD Signed: 10/02/2020 3:25 PM Workstation Name: [id number]
[2020-10-02] MEDS ORDERED: AZITHROMYCIN/NS 500 MG/250 ML 500 MG/250 ML BAG IV ONE (16:18)
[2020-10-02] MEDS ORDERED: methylPREDNISolone Sod Succinate 125 MG/2 ML INJ IV ONE (16:18)
[2020-10-02] MEDS ORDERED: cefTRIAXone/NS 1 GM/50 ML 1 GM/50 ML BAG IV ONE (16:18)
[2020-10-02] MEDS ORDERED: ACETAMINOPHEN 325 MG TAB PO PRN (17:09)
[2020-10-02] MEDS ORDERED: ONDANSETRON 4 MG/2 ML INJ IV PRN (17:09)
[2020-10-02] MEDS ORDERED: ALBUTEROL 2.5 MG/3 ML NEBU IH PRN (17:09)
--- NOTE | 2020-10-02 17:14 | History and Physical Report ---
History of Present Illness Chief complaint: I do not feel good History of present illness: 75 YO Male with DM, Obesity Hypoventilation Syndrome, OA, HTN, Metabolic Syndrome presents to ED for evaluation. Patient reports "I just do not feel good". Patient states that he has experienced generalized weakness, fatigue, malaise, decreased exercise tolerance, over the past 3 days with worsening symptoms over the past 6 hours. EMS was notified and upon arrival the patient was found to be in distress and placed on submental oxygen and subsequently transported to [facility] for further care and evaluation of the aforementioned symptoms. The patient was seen and evaluated in the emergency department. All lab and imaging studies reviewed. Patient was found to have a pulse oximetry of 86% on exertion which is consistent with acute hypoxemic respiratory failure. Chest x-ray revealed pneumonia. Patient was also found to have systemic inflammatory response syndrome. Patient admitted to medical floor and initiated on pneumonia protocol as well as coronavirus protocol. Patient denies fever, chills, chest pain, palpitations, productive cough, unilateral leg swelling, calf pain, prolonged travel/immobility, individual/family history of DVT/PE/bleeding/blood clotting disorders, skin rash, recent ill contacts, or kn own exposure to COVID-19. Patient received his first Covid vaccine 3 weeks ago, and got his second vaccine today. Prior admission on 06/26/2017 reviewed. All medication listed at time of admission has been reconciled. Advanced care planning conducted in ED. Past History Past Medical History: arthritis, diabetes, hypertension, other (See HPI) Past Surgical History: No surgical history, Other (Reviewed) Social history: , lives with family. denies: smoking, alcohol abuse, prescription drug abuse Family history: diabetes, hypertension Medications and Allergies Allergies Allergy/AdvReac Type Severity Reaction Status Date / Time No Known Allergies Allergy Verified 10/02/20 11:33 Home Medications Medication Instructions Recorded Confirmed Last Taken Type Dulaglutide [Trulicity] 0.5 ml SQ 1XW 10/02/20 10/02/20 Unknown History Empagliflozin/Metformin HCl 1 each PO QDAY 10/02/20 10/02/20 Unknown History [Synjardy 12.5-1,000 mg Tablet] Insulin Aspart (Nf) [NovoLOG 15 units SQ ACHS 10/02/20 10/02/20 Unknown History Flexpen] Insulin Glargine,Hum.rec.anlog 15 unit SQ QHS 10/02/20 10/02/20 Unknown History [Yola Persaud U-100] Nebivolol HCl [Bystolic] 10 mg PO QDAY 10/02/20 10/02/20 Unknown History dilTIAZem HCl [Diltiazem 24Hr ER 240 mg PO QDAY 10/02/20 10/02/20 Unknown History (Cd)] Active Meds: Active Medications Acetaminophen (Acetaminophen 325 Mg Tab) 650 mg PO Q4H PRN PRN Reason: Pain MILD(1-3)/Fever >100.5/FINNEGAN Albuterol (Albuterol 2.5 Mg/3 Ml Nebu) 2.5 mg IH Q4HRT PRN PRN Reason: Shortness Of Breath Famotidine (Famotidine 10 Mg Tab) 10 mg PO BID WALKER Azithromycin (Zithromax/Ns) 500 mg in 250 mls @ 250 mls/hr IV ONCE ONE; Protocol Stop: 10/02/20 17:17 Ceftriaxone Sodium (Rocephin/Ns 2 Gm/100 Ml) 2 gm in 100 mls @ 200 mls/hr IV Q24H WALKER; Protocol Azithromycin (Zithromax/Ns) 500 mg in 250 mls @ 250 mls/hr IV Q24H WALKER; Protocol Ondansetron HCl (Ondansetron 4 Mg/2 Ml Inj) 4 mg IV Q8H PRN PRN Reason: Nausea And Vomiting Sodium Chloride (Sodium Chloride 0.9% 10 Ml Flush Syringe) 10 ml IV BID WALKER Sodium Chloride (Sodium Chloride 0.9% 10 Ml Flush Syringe) 10 ml IV PRN PRN PRN Reason: LINE FLUSH Review of Systems Constitutional: fatigue, weakness, malaise Ears, nose, mouth and throat: no ear pain, no ear discharge, no tinnitis, no decreased hearing, no nasal congestion, no nasal discharge Cardiovascular: decreased exercise tolerance, no chest pain, no orthopnea, no palpitations, no rapid/irregular heart beat, no syncope, no lightheadedness Respiratory: no cough, no cough with sputum, no dyspnea on exertion Gastrointestinal: no abdominal pain, no vomiting, no diarrhea, no constipation Genitourinary Male: no hematuria, no flank pain, no discharge, no urinary frequency, no urinary hesitancy Rectal: no pain, no incontinence Musculoskeletal: no neck stiffness, no neck pain, no shooting arm pain, no arm numbness/tingling, no shooting leg pain, no redness of joints Integumentary: no rash, no redness, no sores, no wounds Neurological: no head injury, no paralysis, no syncope, no lack of coordination Psychiatric: no anxiety, no sleep disturbances, no insomnia, no change in appetite, no suicidal ideation Endocrine: no cold intolerance, no heat intolerance, no excessive thirst, no polydipsia, no polyuria, no excessive sweating Hematologic/Lymphatic: no easy bruising, no easy bleeding Allergic/Immunologic: no allergic rhinitis, no wheezing Exam - Constitutional Vitals: Temp Pulse Resp BP Pulse Ox 98.3 F 62 21 155/65 96 10/02/20 11:39 10/02/20 16:31 10/02/20 16:31 10/02/20 16:31 10/02/20 16:31 General appearance: Present: mild distress, cachectic - EENT Eyes: Present: PERRL ENT: hearing intact, clear oral mucosa - Neck Neck: Present: supple, normal ROM - Respiratory Respiratory effort: normal, labored Respiratory: bilateral: diminished, rhonchi - Cardiovascular Heart Sounds: Present: S1 & S2. Absent: rub, click - Extremities Extremities: pulses symmetrical, No edema Peripheral Pulses: within normal limits - Abdominal General gastrointestinal: Present: soft, non-tender, non-distended, normal bowel sounds Male genitourinary: Present: normal - Integumentary Integumentary: Present: clear, warm, dry - Musculoskeletal Musculoskeletal: gait normal, strength equal bilaterally - Psychiatric Psychiatric: appropriate mood/affect, intact judgment & insight - Neurologic Neurologic: CNII-XII intact, moves all extremities HEART Score - HEART Score Troponin: Troponin T < 0.010 ng/mL (0.00-0.029) 10/02/20 12:05 Results - Labs CBC & Chem 7: 10/02/20 12:05 10/02/20 12:05 Labs: Abnormal lab results 10/02/20 10/02/20 10/02/20 Range/Units 12:05 12:05 12:08 WBC 11.6 H (4.5-11.0) K/mm3 RBC 5.28 H (3.65-5.03) M/mm3 Hct 45.7 H (35.5-45.6) % RDW 18.1 H (13.2-15.2) % Seg Neutrophils % 73.8 H (40.0-70.0) % Seg Neutrophils # 8.6 H (1.8-7.7) K/mm3 D-Dimer 753.75 H (0-234) ng/mlDDU POC ABG pO2 (83-108) mmHg ABG Oxyhemoglobin (94-98) ABG Chloride (98-107) mmol/L ALT 68 H (7-56) units/L Albumin 3.8 L (3.9-5) g/dL 10/02/20 Range/Units 12:26 WBC (4.5-11.0) K/mm3 RBC (3.65-5.03) M/mm3 Hct (35.5-45.6) % RDW (13.2-15.2) % Seg Neutrophils % (40.0-70.0) % Seg Neutrophils # (1.8-7.7) K/mm3 D-Dimer (0-234) ng/mlDDU POC ABG pO2 60.1 L (83-108) mmHg ABG Oxyhemoglobin 89.6 L (94-98) ABG Chloride 109.0 H (98-107) mmol/L ALT (7-56) units/L Albumin (3.9-5) g/dL Assessment and Plan - Patient Problems (1) Acute hypoxemic respiratory failure Current Visit: Yes Status: Acute Plan to address problem: Supplemental oxygen, pulse oximetry, nebulizer therapy, CTA chest, chest x-ray, (2) Pneumonia Current Visit: Yes Status: Acute Plan to address problem: Pneumonia protocol: Chest x-ray, CBC, CMP, IV antibiotic therapy, supplemental o xygen, pulse oximetry, nebulizer therapy, blood culture. (3) Suspected 2019 novel coronavirus infection Current Visit: Yes Status: Acute Plan to address problem: Coronavirus protocol: Contact precautions, isolation precautions, prone positioning while in bed, supplemental oxygen, pulse oximetry, infectious disease service consulted. (4) Obesity hypoventilation syndrome Current Visit: Yes Status: Acute Plan to address problem: Supplemental oxygen, pulse oximetry, noninvasive positive pressure ventilation as clinically indicated. Outpatient pulmonary follow-up for sleep study. (5) Diabetes Current Visit: Yes Status: Acute Plan to address problem: Consistent carbohydrate diet, insulin protocol, hypoglycemia protocol, Accu- Chek. (6) Osteoarthritis Current Visit: Yes Status: Acute Plan to address problem: Pain control, hold NSAID therapy, Tylenol as needed. (7) Systemic inflammatory response syndrome Current Visit: Yes Status: Acute Plan to address problem: CBC, CMP, chest x-ray, urinalysis, IV antibiotic therapy, supportive care. (8) DVT prophylaxis Current Visit: Yes Status: Acute Plan to address problem: SCD to bilateral lower extremities while in bed, prophylactic anticoagulation. (9) Advance care planning Current Visit: Yes Status: Acute Plan to address problem: Disease education conducted, care plan discussed, diagnosis discussed, prognosis discussed, patient is full code, patient knowledges understanding and agreement with care plan, +30 minutes.
[2020-10-02 17:25] LABS: C-Reactive Protein 3.2 mg/dL (0.00-1.30)
[2020-10-02] MEDS: dilTIAZem CD 240 MG CAP PO SCH (18:14)
[2020-10-02] MEDS ORDERED: hydrALAZINE 20 MG/1 ML INJ IV ONE (20:00)
[2020-10-02] MEDS: HEPARIN 5,000 UNIT/1 ML VIAL SUB-Q SCH (21:46)
[2020-10-02] MEDS: ZINC SULFATE 220 MG CAP PO SCH (21:47)
[2020-10-02] MEDS: methylPREDNISolone Sod Succinate 40 MG/1 ML INJ IV SCH (21:47)
[2020-10-02] MEDS: ASCORBIC ACID 500 MG TAB PO SCH (21:48)
[2020-10-03] MEDS: FAMOTIDINE 10 MG TAB PO SCH ×3 (00:16→22:29)
[2020-10-03] MEDS: INSULIN LISPRO 100 UNIT/ML SUB-Q SCH ×8 (00:16→22:29)
[2020-10-03] MEDS: methylPREDNISolone Sod Succinate 40 MG/1 ML INJ IV SCH ×3 (05:52→22:28)
[2020-10-03 06:01] LABS: Hemoglobin 14.2 gm/dl (11.8-15.2); Mean Corpuscular HGB Conc 33 % (32-34); Mean Corpuscular Volume 85 fl (84-94); Platelet Count 297 K/mm3 (140-440); Red Blood Count 5.05 M/mm3 (3.65-5.03); Red Cell Distribution Width 18.2 % (13.2-15.2)
[2020-10-03 06:30] LABS: BUN/Creatinine Ratio 17; Blood Urea Nitrogen 15 mg/dL (9-20); Calcium 8.7 mg/dL (8.4-10.2); Hemolysis Index 5
[2020-10-03 07:00] LABS: Total Cells Counted 100
[2020-10-03 07:02] LABS: Platelet Estimate Consistent w Auto
--- NOTE | 2020-10-03 08:28 | Progress Note ---
Assessment and Plan Assessment and plan: Acute hypoxic respiratory failure Pneumonia Suspected COVID-19 Obesity hypoventilation syndrome Diabetes mellitus type 2 Sepsis Osteoarthritis 10/03/2020. D-dimer was elevated but CTA of the chest revealed no evidence of PE. ABG reveals hypoxemia with a PO2 of 60.1. Chest x-ray with bilateral mild patchy consolidation consistent with likely COVID-19 infection. Await COVID-19 testing. ID consultation pending. Will likely need to start dexamethasone and possibly remdesivir. Initial inflammatory markers elevated with ferritin 424, LDH 391, CRP 3.2 and D-dimer 753. History Interval history: No new issues Hospitalist Physical - Constitutional Vitals: Temp Pulse Resp BP Pulse Ox 97.6 F 76 25 H 161/77 95 10/03/20 04:39 10/03/20 04:40 10/03/20 04:39 10/03/20 04:39 10/03/20 04:40 General appearance: Present: mild distress, cachectic - EENT Eyes: Present: PERRL, EOM intact ENT: hearing intact, clear oral mucosa, dentition normal - Neck Neck: Present: supple, normal ROM - Respiratory Respiratory effort: normal Respiratory: bilateral: CTA - Cardiovascular Rhythm: regular Heart Sounds: Present: S1 & S2. Absent: gallop, rub - Extremities Extremities: no ischemia, No edema, Full ROM - Abdominal General gastrointestinal: soft, non-tender, non-distended, normal bowel sounds - Integumentary Integumentary: Present: clear, warm, dry - Neurologic Neurologic: CNII-XII intact, moves all extremities HEART Score - HEART Score Troponin: Troponin T < 0.010 ng/mL (0.00-0.029) 10/02/20 12:05 Results - Labs CBC & Chem 7: 10/03/20 04:51 10/03/20 04:51 Labs: Laboratory Last Values WBC 10.5 K/mm3 (4.5-11.0) 10/03/20 04:51 RBC 5.05 M/mm3 (3.65-5.03) H 10/03/20 04:51 Hgb 14.2 gm/dl (11.8-15.2) 10/03/20 04:51 Hct 43.0 % (35.5-45.6) 10/03/20 04:51 MCV 85 fl (84-94) 10/03/20 04:51 MCH 28 pg (28-32) 10/03/20 04:51 MCHC 33 % (32-34) 10/03/20 04:51 RDW 18.2 % (13.2-15.2) H 10/03/20 04:51 Plt Count 297 K/mm3 (140-440) 10/03/20 04:51 Lymph % (Auto) 18.3 % (13.4-35.0) 10/02/20 12:05 [place] % (Auto) 5.9 % (0.0-7.3) 10/02/20 12:05 Eos % (Auto) 1.1 % (0.0-4.3) 10/02/20 12:05 Baso % (Auto) 0.9 % (0.0-1.8) 10/02/20 12:05 Lymph # (Auto) 2.1 K/mm3 (1.2-5.4) 10/02/20 12:05 [place] # (Auto) 0.7 K/mm3 (0.0-0.8) 10/02/20 12:05 Eos # (Auto) 0.1 K/mm3 (0.0-0.4) 10/02/20 12:05 Baso # (Auto) 0.1 K/mm3 (0.0-0.1) 10/02/20 12:05 Add Manual Diff Complete 10/03/20 04:51 Total Counted 100 10/03/20 04:51 Seg Neutrophils % Line Runner 10/03/20 04:51 Seg Neuts % (Manual) 91.0 % (40.0-70.0) H 10/03/20 04:51 Lymphocytes % (Manual) 6.0 % (13.4-35.0) L 10/03/20 04:51 Monocytes % (Manual) 3.0 % (0.0-7.3) 10/03/20 04:51 Nucleated RBC % Not Reportable 10/03/20 04:51 Seg Neutrophils # 8.6 K/mm3 (1.8-7.7) H 10/02/20 12:05 Seg Neutrophils # Man 9.6 K/mm3 (1.8-7.7) H 10/03/20 04:51 Band Neutrophils # 0.0 K/mm3 10/03/20 04:51 Lymphocytes # (Manual) 0.6 K/mm3 (1.2-5.4) L 10/03/20 04:51 Abs React Lymphs (Man) 0.0 K/mm3 10/03/20 04:51 Monocytes # (Manual) 0.3 K/mm3 (0.0-0.8) 10/03/20 04:51 Eosinophils # (Manual) 0.0 K/mm3 (0.0-0.4) 10/03/20 04:51 Basophils # (Manual) 0.0 K/mm3 (0.0-0.1) 10/03/20 04:51 Metamyelocytes # 0.0 K/mm3 10/03/20 04:51 Myelocytes # 0.0 K/mm3 10/03/20 04:51 Promyelocytes # 0.0 K/mm3 10/03/20 04:51 Blast Cells # 0.0 K/mm3 10/03/20 04:51 WBC Morphology Not Reportable 10/03/20 04:51 Hypersegmented Neuts Not Reportable 10/03/20 04:51 Hyposegmented Neuts Not Reportable 10/03/20 04:51 Hypogranular Neuts Not Reportable 10/03/20 04:51 Smudge Cells Not Reportable 10/03/20 04:51 Toxic Granulation Not Reportable 10/03/20 04:51 Toxic Vacuolation Not Reportable 10/03/20 04:51 Dohle Bodies Not Reportable 10/03/20 04:51 Pelger-Huet Anomaly Not Reportable 10/03/20 04:51 Sonja Rods Not Reportable 10/03/20 04:51 Platelet Estimate Consistent w auto 10/03/20 04:51 Clumped Platelets Not Reportable 10/03/20 04:51 Plt Clumps, EDTA Not Reportable 10/03/20 04:51 Large Platelets Not Reportable 10/03/20 04:51 Giant Platelets Not Reportable 10/03/20 04:51 Platelet Satelliting Not Reportable 10/03/20 04:51 Plt Morphology Comment Not Reportable 10/03/20 04:51 RBC Morphology Not Reportable 10/03/20 04:51 Dimorphic RBCs Not Reportable 10/03/20 04:51 Polychromasia Few 10/03/20 04:51 Hypochromasia Not Reportable 10/03/20 04:51 Poikilocytosis Not Reportable 10/03/20 04:51 Anisocytosis Not Reportable 10/03/20 04:51 Microcytosis Not Reportable 10/03/20 04:51 Macrocytosis Not Reportable 10/03/20 04:51 Spherocytes Not Reportable 10/03/20 04:51 Pappenheimer Bodies Not Reportable 10/03/20 04:51 Sickle Cells Not Reportable 10/03/20 04:51 Target Cells Not Reportable 10/03/20 04:51 Tear Drop Cells Not Reportable 10/03/20 04:51 Ovalocytes Not Reportable 10/03/20 04:51 Helmet Cells Not Reportable 10/03/20 04:51 Chapa-Gaylord Bodies Not Reportable 10/03/20 04:51 [place] Rings Not Reportable 10/03/20 04:51 [place] Cells Not Reportable 10/03/20 04:51 Bite Cells Not Reportable 10/03/20 04:51 Crenated Cell Not Reportable 10/03/20 04:51 Elliptocytes Rare 10/03/20 04:51 Acanthocytes (Spur) Not Reportable 10/03/20 04:51 Rouleaux Not Reportable 10/03/20 04:51 Hemoglobin C Crystals Not Reportable 10/03/20 04:51 Schistocytes Not Reportable 10/03/20 04:51 Malaria parasites Not Reportable 10/03/20 04:51 Haresh Bodies Not Reportable 10/03/20 04:51 Hem Pathologist Commnt No 10/03/20 04:51 PT 13.4 Sec. (12.2-14.9) 10/02/20 12:08 INR 1.04 (0.87-1.13) 10/02/20 12:08 APTT 29.3 Sec. (24.2-36.6) 10/02/20 12:08 D-Dimer 753.75 ng/mlDDU (0-234) H 10/02/20 12:08 ABG pH 7.356 (7.320-7.450) 10/02/20 12:26 POC ABG pCO2 46.7 mmHg (32.0-48.0) 10/02/20 12:26 POC ABG pO2 60.1 mmHg (83-108) L 10/02/20 12:26 POC ABG HCO3 25.6 10/02/20 12:26 POC ABG Base Excess -0.4 10/02/20 12:26 ABG Hemoglobin 14.9 (12.0-17.5) 10/02/20 12:26 ABG Oxyhemoglobin 89.6 (94-98) L 10/02/20 12:26 ABG Methemoglobin 0.3 (0.0-1.5) 10/02/20 12:26 ABG Sodium 143.7 mmol/L (136.0-145.0) 10/02/20 12: ABG Potassium 3.8 mmol/L (3.40-4.50) 10/02/20 12: ABG Chloride 109.0 mmol/L (98-107) H 10/02/20 12: ABG Glucose 89 mg/dL (65-95) 10/02/20 12:26 Carboxyhemoglobin 1.1 (0.5-1.5) 10/02/20 12:26 FiO2 21.0 10/02/20 12: Sodium 140 mmol/L (137-145) 10/03/20 04:51 Potassium 4.1 mmol/L (3.6-5.0) 10/03/20 04:51 Chloride 103.9 mmol/L (98-107) 10/03/20 04:51 Carbon Dioxide 23 mmol/L (22-30) 10/03/20 04:51 Anion Gap 17 mmol/L 10/03/20 04:51 BUN 15 mg/dL (9-20) 10/03/20 04:51 Creatinine 0.9 mg/dL (0.8-1.3) 10/03/20 04:51 Estimated GFR > 60 ml/min 10/03/20 04:51 BUN/Creatinine Ratio 17 % 10/03/20 04:51 Glucose 229 mg/dL (75-100) H 10/03/20 04:51 POC Glucose 262 mg/dL (70-105) H 10/02/20 22:15 Calcium 8.7 mg/dL (8.4-10.2) 10/03/20 04:51 Ferritin 424.3 ng/mL (30.0-300.0) H 10/02/20 17:02 Total Bilirubin 0.40 mg/dL (0.1-1.2) 10/02/20 12:05 AST 37 units/L (5-40) 10/02/20 12:05 ALT 68 units/L (7-56) H 10/02/20 12:05 Alkaline Phosphatase 103 units/L (35-129) 10/02/20 12:05 Lactate Dehydrogenase 391 units/L (91-180) H 10/02/20 17:02 Troponin T < 0.010 ng/mL (0.00-0.029) 10/02/20 12:05 C-Reactive Protein 3.20 mg/dL (0.00-1.30) H 10/02/20 17:02 NT-Pro-B Natriuret Pep 285.9 pg/mL (0-900) 10/02/20 12:05 Total Protein 7.2 g/dL (6.3-8.2) 10/02/20 12:05 Albumin 3.8 g/dL (3.9-5) L 10/02/20 12:05 Albumin/Globulin Ratio 1.1 % 10/02/20 12:05 Arterial Blood Glucose 89 mg/dL (65-95) 10/02/20 12:26 Arterial Blood Ionized Calcium 4.7 mg/dL (4.6-5.3) 10/02/20 12:26 Urine Color Yellow (Yellow) 10/02/20 12:15 Urine Turbidity Slightly-cloudy (Clear) 10/02/20 12:15 Urine pH 5.0 (5.0-7.0) 10/02/20 12:15 Ur Specific [place] 1.030 (1.003-1.030) 10/02/20 12:15 Urine Protein 100 mg/dl mg/dL (Negative) 10/02/20 12:15 Urine Glucose (UA) >=500 mg/dL (Negative) 10/02/20 12:15 Urine Ketones Neg mg/dL (Negative) 10/02/20 12:15 Urine Blood Neg (Negative) 10/02/20 12:15 Urine Nitrite Neg (Negative) 10/02/20 12:15 Urine Bilirubin Neg (Negative) 10/02/20 12:15 Urine Urobilinogen < 2.0 mg/dL (<2.0) 10/02/20 12:15 Ur Leukocyte Esterase Neg (Negative) 10/02/20 12:15 Urine WBC (Auto) 6.0 /HPF (0.0-6.0) 10/02/20 12:15 Urine RBC (Auto) 2.0 /HPF (0.0-6.0) 10/02/20 12:15 U Epithel Cells (Auto) 1.0 /HPF (0-13.0) 10/02/20 12:15 Urine Mucus Few /HPF 10/02/20 12:15 Microbiology: Microbiology 10/02/20 16:38 Peripheral/Venous Blood Culture - Preliminary Culture in Progress 10/02/20 16:23 Peripheral/Venous Blood Culture - Preliminary Culture in Progress Taylor/IV: Voiding Method Toilet Active Medications - Current Medications Current Medications: Generic Name Dose Route Start Last Admin Trade Name Freq PRN Reason Stop Dose Admin Acetaminophen 650 mg 10/02/20 17:09 Acetaminophen 325 Mg Tab PO Q4H PRN Pain MILD(1-3)/Fever >100.5/FINNEGAN Albuterol 2.5 mg 10/02/20 17:09 Albuterol 2.5 Mg/3 Ml Nebu IH Q4HRT PRN Shortness Of Breath Ascorbic Acid 500 mg 10/02/20 22:00 10/02/20 21:48 Ascorbic Acid 500 Mg Tab PO 500 mg BID WALKER Administration Cholecalciferol 1,000 unit 10/03/20 10:00 Cholecalciferol (Vit D3) 1000 Unit (25 Mcg) [facility] Diltiazem HCl 240 mg 10/03/20 10:00 10/02/20 18:14 Diltiazem Cd 240 Mg Cap PO 240 mg QDAY [facility] Administration Famotidine 10 mg 10/02/20 22:00 10/03/20 00:16 Famotidine 10 Mg Tab PO 10 mg BID WALKER Administration Heparin Sodium (Porcine) 5,000 unit 10/02/20 22:00 10/02/20 21:46 Heparin 5,000 Unit/1 Ml Vial SUB-Q 5,000 unit Q12HR WALKER Administration Hydrochlorothiazide 25 mg 10/03/20 10:00 Hydrochlorothiazide 25 Mg Tab PO QDAY [facility] Ceftriaxone Sodium 2 gm in 100 mls @ 200 mls/hr 10/03/20 18:00 Rocephin/Ns 2 Gm/100 Ml IV Q24H WALKER Protocol Azithromycin 500 mg in 250 mls @ 250 mls/hr 10/03/20 17:00 Zithromax/Ns IV Q24H WALKER Protocol Insulin Human Lispro 0 unit 10/03/20 00:03 10/03/20 00:16 Insulin Lispro 100 Unit/Ml SUB-Q 4 unit ACHS WALKER Administration Protocol Losartan Potassium 100 mg 10/03/20 10:00 Losartan 50 Mg Tab PO QDAY WALKER Methylprednisolone Sodium Succinate 40 mg 10/02/20 22:00 10/03/20 05:52 Methylprednisolone Sod Succinate 40 Mg/1 Ml Inj IV 40 mg Q8HR WALKER Administration Ondansetron HCl 4 mg 10/02/20 17:09 Ondansetron 4 Mg/2 Ml Inj IV Q8H PRN Nausea And Vomiting Sodium Chloride 10 ml 10/02/20 22:00 10/02/20 21:46 Sodium Chloride 0.9% 10 Ml Flush Syringe IV 10 ml BID WALKER Administration Sodium Chloride 10 ml 10/02/20 17:09 Sodium Chloride 0.9% 10 Ml Flush Syringe IV PRN PRN LINE FLUSH Zinc Sulfate 220 mg 10/02/20 22:00 10/02/20 21:47 Zinc Sulfate 220 Mg Cap PO 220 mg BID WALKER Administration Nutrition/Malnutrition Assess - Dietary Evaluation Nutrition/Malnutrition Findings: Nutrition Notes Start: 10/03/20 07:07 Freq: Status: Active Protocol: Document 10/03/20 07:07 LP (Rec: 10/03/20 07:08 LP [id number]) Nutrition Notes Need for Assessment generated from: instructional material director Initial or Follow up Brief Note Subjective/Other Information Screen for skin risk (21). Error. Nutrition Intervention Revisit per MD consult or patient Sign Off request:
[2020-10-03] MEDS: LOSARTAN 50 MG TAB PO SCH (09:15)
[2020-10-03] MEDS: hydroCHLOROthiazide 25 MG TAB PO SCH (09:15)
[2020-10-03] MEDS: CHOLECALCIFEROL (VIT D3) 1000 UNIT (25 mcg) TAB PO SCH (09:15)
[2020-10-03] MEDS: ZINC SULFATE 220 MG CAP PO SCH ×2 (09:16→22:29)
[2020-10-03] MEDS: ASCORBIC ACID 500 MG TAB PO SCH ×2 (09:16→22:29)
[2020-10-03] MEDS: HEPARIN 5,000 UNIT/1 ML VIAL SUB-Q SCH ×2 (09:16→22:30)
[2020-10-03] MEDS ORDERED: DILTIAZEM PO SCH (10:00)
[2020-10-03] MEDS ORDERED: dilTIAZem CD 240 MG CAP PO SCH (10:00)
[2020-10-03] MEDS ORDERED: LOSARTAN PO SCH (10:00)
[2020-10-03] MEDS ORDERED: HYDROCHLOROTHIAZIDE PO SCH (10:00)
[2020-10-03] MEDS ORDERED: NEBIVOLOL HCL 10 MG PO SCH (10:00)
[2020-10-03] MEDS: METOPROLOL SUCCINATE XL 100 MG TAB PO SCH (11:23)
[2020-10-03] MEDS: ASPIRIN EC 81 MG TAB PO SCH (11:23)
[2020-10-03] MEDS: dilTIAZem CD 240 MG CAP PO SCH (12:05)
[2020-10-03] MEDS ORDERED: TRULICITY 1.5 MG/0.5 ML SUB-Q SCH (14:00)
[2020-10-03] MEDS: AZITHROMYCIN/NS 500 MG/250 ML 500 MG/250 ML BAG IV SCH (18:33)
[2020-10-03] MEDS: cefTRIAXone/NS 2 GM/100 ML 2 GM/100 ML BAG IV SCH (18:41)
[2020-10-03] MEDS ORDERED: NON-FORMULARY EACH (Insulin Glargine,Hum.Rec.Anlog [Basaglar Kwikpen U-100] 100 UNIT/ML In SQ SCH (22:00)
[2020-10-03] MEDS: INSULIN GLARGINE 100 UNITS/ML SUB-Q SCH (22:29)
[2020-10-04] MEDS: methylPREDNISolone Sod Succinate 40 MG/1 ML INJ IV SCH ×2 (06:26→17:55)
--- NOTE | 2020-10-04 08:03 | Progress Note ---
Assessment and Plan Assessment and plan: Acute hypoxic respiratory failure Community-acquired pneumonia. COVID-19 negative. Obesity hypoventilation syndrome Diabetes mellitus type 2 Sepsis Osteoarthritis 10/03/2020. D-dimer was elevated but CTA of the chest revealed no evidence of PE. ABG reveals hypoxemia with a PO2 of 60.1. Chest x-ray with bilateral mild patchy consolidation consistent with likely COVID-19 infection. Await COVID-19 testing. ID consultation pending. Will likely need to start dexamethasone and possibly remdesivir. Initial inflammatory markers elevated with ferritin 424, LDH 391, CRP 3.2 and D-dimer 753. 10/04/2020. Covid testing negative. Consider repeat testing. Await ID consultation. Continue IV antibiotics and Solu-Medrol. Wean Solu-Medrol. BG mildly elevated. Continue current regimen of Lantus 45 units at bedtime and 15 units of regular insulin with each meal. Patient currently stable with 3 L of oxygen and saturations at 96%. History Interval history: No new issues Hospitalist Physical - Constitutional Vitals: Temp Pulse Resp BP Pulse Ox 97.6 F 63 26 H 143/59 96 10/04/20 05:16 10/04/20 05:16 10/04/20 05:16 10/04/20 05:16 10/04/20 07:35 General appearance: Present: mild distress, cachectic - EENT Eyes: Present: PERRL, EOM intact ENT: hearing intact, clear oral mucosa, dentition normal - Neck Neck: Present: supple, normal ROM - Respiratory Respiratory effort: normal Respiratory: bilateral: CTA - Cardiovascular Rhythm: regular Heart Sounds: Present: S1 & S2. Absent: gallop, rub - Extremities Extremities: no ischemia, No edema, Full ROM - Abdominal General gastrointestinal: soft, non-tender, non-distended, normal bowel sounds - Integumentary Integumentary: Present: clear, warm, dry - Neurologic Neurologic: CNII-XII intact, moves all extremities HEART Score - HEART Score Troponin: Troponin T < 0.010 ng/mL (0.00-0.029) 10/02/20 12:05 Results - Labs CBC & Chem 7: 10/03/20 04:51 10/03/20 04:51 Labs: Laboratory Last Values WBC 10.5 K/mm3 (4.5-11.0) 10/03/20 04:51 RBC 5.05 M/mm3 (3.65-5.03) H 10/03/20 04:51 Hgb 14.2 gm/dl (11.8-15.2) 10/03/20 04:51 Hct 43.0 % (35.5-45.6) 10/03/20 04:51 MCV 85 fl (84-94) 10/03/20 04:51 MCH 28 pg (28-32) 10/03/20 04:51 MCHC 33 % (32-34) 10/03/20 04:51 RDW 18.2 % (13.2-15.2) H 10/03/20 04:51 Plt Count 297 K/mm3 (140-440) 10/03/20 04:51 Lymph % (Auto) 18.3 % (13.4-35.0) 10/02/20 12:05 [place] % (Auto) 5.9 % (0.0-7.3) 10/02/20 12:05 Eos % (Auto) 1.1 % (0.0-4.3) 10/02/20 12:05 Baso % (Auto) 0.9 % (0.0-1.8) 10/02/20 12:05 Lymph # (Auto) 2.1 K/mm3 (1.2-5.4) 10/02/20 12:05 [place] # (Auto) 0.7 K/mm3 (0.0-0.8) 10/02/20 12:05 Eos # (Auto) 0.1 K/mm3 (0.0-0.4) 10/02/20 12:05 Baso # (Auto) 0.1 K/mm3 (0.0-0.1) 10/02/20 12:05 Add Manual Diff Complete 10/03/20 04:51 Total Counted 100 10/03/20 04:51 Seg Neutrophils % [place] Operator 10/03/20 04:51 Seg Neuts % (Manual) 91.0 % (40.0-70.0) H 10/03/20 04:51 Lymphocytes % (Manual) 6.0 % (13.4-35.0) L 10/03/20 04:51 Monocytes % (Manual) 3.0 % (0.0-7.3) 10/03/20 04:51 Nucleated RBC % Not Reportable 10/03/20 04:51 Seg Neutrophils # 8.6 K/mm3 (1.8-7.7) H 10/02/20 12:05 Seg Neutrophils # Man 9.6 K/mm3 (1.8-7.7) H 10/03/20 04:51 Band Neutrophils # 0.0 K/mm3 10/03/20 04:51 Lymphocytes # (Manual) 0.6 K/mm3 (1.2-5.4) L 10/03/20 04:51 Abs React Lymphs (Man) 0.0 K/mm3 10/03/20 04:51 Monocytes # (Manual) 0.3 K/mm3 (0.0-0.8) 10/03/20 04:51 Eosinophils # (Manual) 0.0 K/mm3 (0.0-0.4) 10/03/20 04:51 Basophils # (Manual) 0.0 K/mm3 (0.0-0.1) 10/03/20 04:51 Metamyelocytes # 0.0 K/mm3 10/03/20 04:51 Myelocytes # 0.0 K/mm3 10/03/20 04:51 Promyelocytes # 0.0 K/mm3 10/03/20 04:51 Blast Cells # 0.0 K/mm3 10/03/20 04:51 WBC Morphology Not Reportable 10/03/20 04:51 Hypersegmented Neuts Not Reportable 10/03/20 04:51 Hyposegmented Neuts Not Reportable 10/03/20 04:51 Hypogranular Neuts Not Reportable 10/03/20 04:51 Smudge Cells Not Reportable 10/03/20 04:51 Toxic Granulation Not Reportable 10/03/20 04:51 Toxic Vacuolation Not Reportable 10/03/20 04:51 Dohle Bodies Not Reportable 10/03/20 04:51 Pelger-Huet Anomaly Not Reportable 10/03/20 04:51 Sonja Rods Not Reportable 10/03/20 04:51 Platelet Estimate Consistent w auto 10/03/20 04:51 Clumped Platelets Not Reportable 10/03/20 04:51 Plt Clumps, EDTA Not Reportable 10/03/20 04:51 Large Platelets Not Reportable 10/03/20 04:51 Giant Platelets Not Reportable 10/03/20 04:51 Platelet Satelliting Not Reportable 10/03/20 04:51 Plt Morphology Comment Not Reportable 10/03/20 04:51 RBC Morphology Not Reportable 10/03/20 04:51 Dimorphic RBCs Not Reportable 10/03/20 04:51 Polychromasia Few 10/03/20 04:51 Hypochromasia Not Reportable 10/03/20 04:51 Poikilocytosis Not Reportable 10/03/20 04:51 Anisocytosis Not Reportable 10/03/20 04:51 Microcytosis Not Reportable 10/03/20 04:51 Macrocytosis Not Reportable 10/03/20 04:51 Spherocytes Not Reportable 10/03/20 04:51 Pappenheimer Bodies Not Reportable 10/03/20 04:51 Sickle Cells Not Reportable 10/03/20 04:51 Target Cells Not Reportable 10/03/20 04:51 Tear Drop Cells Not Reportable 10/03/20 04:51 Ovalocytes Not Reportable 10/03/20 04:51 Helmet Cells Not Reportable 10/03/20 04:51 [place] Bodies Not Reportable 10/03/20 04:51 [place] Rings Not Reportable 10/03/20 04:51 [place] Cells Not Reportable 10/03/20 04:51 Bite Cells Not Reportable 10/03/20 04:51 Crenated Cell Not Reportable 10/03/20 04:51 Elliptocytes Rare 10/03/20 04:51 Acanthocytes (Spur) Not Reportable 10/03/20 04:51 Rouleaux Not Reportable 10/03/20 04:51 Hemoglobin C Crystals Not Reportable 10/03/20 04:51 Schistocytes Not Reportable 10/03/20 04:51 Malaria parasites Not Reportable 10/03/20 04:51 Haresh Bodies Not Reportable 10/03/20 04:51 Hem Pathologist Commnt No 10/03/20 04:51 PT 13.4 Sec. (12.2-14.9) 10/02/20 12:08 INR 1.04 (0.87-1.13) 10/02/20 12:08 APTT 29.3 Sec. (24.2-36.6) 10/02/20 12:08 D-Dimer 753.75 ng/mlDDU (0-234) H 10/02/20 12:08 ABG pH 7.356 (7.320-7.450) 10/02/20 12:26 POC ABG pCO2 46.7 mmHg (32.0-48.0) 10/02/20 12: POC ABG pO2 60.1 mmHg (83-108) L 10/02/20 12:26 POC ABG HCO3 25.6 10/02/20 12:26 POC ABG Base Excess -0.4 10/02/20 12:26 ABG Hemoglobin 14.9 (12.0-17.5) 10/02/20 12: ABG Oxyhemoglobin 89.6 (94-98) L 10/02/20 12: ABG Methemoglobin 0.3 (0.0-1.5) 10/02/20 12:26 ABG Sodium 143.7 mmol/L (136.0-145.0) 10/02/20 12:26 ABG Potassium 3.8 mmol/L (3.40-4.50) 10/02/20 12:26 ABG Chloride 109.0 mmol/L (98-107) H 10/02/20 12:26 ABG Glucose 89 mg/dL (65-95) 10/02/20 12:26 Carboxyhemoglobin 1.1 (0.5-1.5) 10/02/20 12:26 FiO2 21.0 10/02/20 12:26 Sodium 140 mmol/L (137-145) 10/03/20 04:51 Potassium 4.1 mmol/L (3.6-5.0) 10/03/20 04:51 Chloride 103.9 mmol/L (98-107) 10/03/20 04:51 Carbon Dioxide 23 mmol/L (22-30) 10/03/20 04:51 Anion Gap 17 mmol/L 10/03/20 04:51 BUN 15 mg/dL (9-20) 10/03/20 04:51 Creatinine 0.9 mg/dL (0.8-1.3) 10/03/20 04:51 Estimated GFR > 60 ml/min 10/03/20 04:51 BUN/Creatinine Ratio 17 % 10/03/20 04:51 Glucose 229 mg/dL (75-100) H 10/03/20 04:51 POC Glucose 208 mg/dL (70-105) H 10/04/20 07:40 Calcium 8.7 mg/dL (8.4-10.2) 10/03/20 04:51 Ferritin 424.3 ng/mL (30.0-300.0) H 10/02/20 17:02 Total Bilirubin 0.40 mg/dL (0.1-1.2) 10/02/20 12:05 AST 37 units/L (5-40) 10/02/20 12:05 ALT 68 units/L (7-56) H 10/02/20 12:05 Alkaline Phosphatase 103 units/L (35-129) 10/02/20 12:05 Lactate Dehydrogenase 391 units/L (91-180) H 10/02/20 17:02 Troponin T < 0.010 ng/mL (0.00-0.029) 10/02/20 12:05 C-Reactive Protein 3.20 mg/dL (0.00-1.30) H 10/02/20 17:02 NT-Pro-B Natriuret Pep 285.9 pg/mL (0-900) 10/02/20 12:05 Total Protein 7.2 g/dL (6.3-8.2) 10/02/20 12:05 Albumin 3.8 g/dL (3.9-5) L 10/02/20 12:05 Albumin/Globulin Ratio 1.1 % 10/02/20 12:05 Procalcitonin 0.18 ng/mL (<0.15) 10/02/20 17:02 Arterial Blood Glucose 89 mg/dL (65-95) 10/02/20 12:26 Arterial Blood Ionized Calcium 4.7 mg/dL (4.6-5.3) 10/02/20 12:26 Urine Color Yellow (Yellow) 10/02/20 12:15 Urine Turbidity Slightly-cloudy (Clear) 10/02/20 12:15 Urine pH 5.0 (5.0-7.0) 10/02/20 12:15 Ur Specific [place] 1.030 (1.003-1.030) 10/02/20 12:15 Urine Protein 100 mg/dl mg/dL (Negative) 10/02/20 12:15 Urine Glucose (UA) >=500 mg/dL (Negative) 10/02/20 12:15 Urine Ketones Neg mg/dL (Negative) 10/02/20 12:15 Urine Blood Neg (Negative) 10/02/20 12:15 Urine Nitrite Neg (Negative) 10/02/20 12:15 Urine Bilirubin Neg (Negative) 10/02/20 12:15 Urine Urobilinogen < 2.0 mg/dL (<2.0) 10/02/20 12:15 Ur Leukocyte Esterase Neg (Negative) 10/02/20 12:15 Urine WBC (Auto) 6.0 /HPF (0.0-6.0) 10/02/20 12:15 Urine RBC (Auto) 2.0 /HPF (0.0-6.0) 10/02/20 12:15 U Epithel Cells (Auto) 1.0 /HPF (0-13.0) 10/02/20 12:15 Urine Mucus Few /HPF 10/02/20 12:15 Coronavirus (PCR) Negative (Negative) 10/03/20 Unknown Microbiology: Microbiology 10/02/20 16:38 Peripheral/Venous Blood Culture - Preliminary NO GROWTH AFTER 24 HOURS 10/02/20 16:23 Peripheral/Venous Blood Culture - Preliminary NO GROWTH AFTER 24 HOURS Taylor/IV: Voiding Method Toilet Active Medications - Current Medications Current Medications: Generic Name Dose Route Start Last Admin Trade Name Freq PRN Reason Stop Dose Admin Acetaminophen 650 mg 10/02/20 17:09 Acetaminophen 325 Mg Tab PO Q4H PRN Pain MILD(1-3)/Fever >100.5/FINNEGAN Albuterol 2.5 mg 10/02/20 17:09 Albuterol 2.5 Mg/3 Ml Nebu IH Q4HRT PRN Shortness Of Breath Ascorbic Acid 500 mg 10/02/20 22:00 10/03/20 22:29 Ascorbic Acid 500 Mg Tab PO 500 mg BID WALKER Administration Aspirin 81 mg 10/03/20 11:00 10/03/20 11:23 Aspirin Ec 81 Mg Tab PO 81 mg DAILY WALKER Administration Cholecalciferol 1,000 unit 10/03/20 10:00 10/03/20 09:15 Cholecalciferol (Vit D3) 1000 Unit (25 Mcg) Tab PO 1,000 unit QDAY WALKER Administration Diltiazem HCl 240 mg 10/03/20 10:00 10/03/20 12:05 Diltiazem Cd 240 Mg Cap PO 240 mg QDAY WALKER Administration Famotidine 10 mg 10/02/20 22:00 10/03/20 22:29 Famotidine 10 Mg Tab PO 10 mg BID WALKER Administration Heparin Sodium (Porcine) 5,000 unit 10/02/20 22:00 10/03/20 22:30 Heparin 5,000 Unit/1 Ml Vial SUB-Q 5,000 unit Q12HR WALKER Administration Hydrochlorothiazide 25 mg 10/03/20 10:00 10/03/20 09:15 Hydrochlorothiazide 25 Mg Tab PO 25 mg QDAY WALKER Administration Ceftriaxone Sodium 2 gm in 100 mls @ 200 mls/hr 10/03/20 18:00 10/03/20 18:41 Rocephin/Ns 2 Gm/100 Ml IV 200 mls/hr Q24H WALKER Administration Protocol Azithromycin 500 mg in 250 mls @ 250 mls/hr 10/03/20 17:00 10/03/20 18:33 Zithromax/Ns IV 250 mls/hr Q24H WALKER Administration Protocol Insulin Glargine 45 units 10/03/20 22:00 10/03/20 22:29 Insulin Glargine 100 Units/Ml SUB-Q 45 units QHS WALKER Administration Insulin Human Lispro 0 unit 10/03/20 00:03 10/03/20 22:29 Insulin Lispro 100 Unit/Ml SUB-Q 4 unit ACHS [facility] Administration Protocol Insulin Human Lispro 15 unit 10/03/20 11:30 10/03/20 22:29 Insulin Lispro 100 Unit/Ml SUB-Q 15 unit ACHS [facility] Administration Losartan Potassium 100 mg 10/03/20 10:00 10/03/20 09:15 Losartan 50 Mg Tab PO 100 mg QDAY WALKER Administration Methylprednisolone Sodium Succinate 40 mg 10/02/20 22:00 10/04/20 06:26 Methylprednisolone Sod Succinate 40 Mg/1 Ml Inj IV 40 mg Q8HR WALKER Administration Metoprolol Succinate 100 mg 10/03/20 12:00 10/03/20 11:23 Metoprolol Succinate Xl 100 Mg Tab PO 100 mg QDAY WALKER Administration Miscellaneous Medication 0.5 each 10/03/20 14:00 10/03/20 13:00 Trulicity (Dulaglutide) 1.5 Mg/0.5 Ml SUB-Q 0.5 each [place] WALKER Administration Miscellaneous Medication 1 each 10/03/20 10:00 Empagliflozin/Metformin Hcl [Synjardy 12.5-1,000 Mg Tablet] PO QDAY WALKER Ondansetron HCl 4 mg 10/02/20 17:09 Ondansetron 4 Mg/2 Ml Inj IV Q8H PRN Nausea And Vomiting Sodium Chloride 10 ml 10/02/20 22:00 10/03/20 22:30 Sodium Chloride 0.9% 10 Ml Flush Syringe IV 10 ml BID WALKER Administration Sodium Chloride 10 ml 10/02/20 17:09 Sodium Chloride 0.9% 10 Ml Flush Syringe IV PRN PRN LINE FLUSH Zinc Sulfate 220 mg 10/02/20 22:00 10/03/20 22:29 Zinc Sulfate 220 Mg Cap PO 220 mg BID WALKER Administration Nutrition/Malnutrition Assess - Dietary Evaluation Nutrition/Malnutrition Findings: Nutrition Notes Start: 10/03/20 07:07 Freq: Status: Active Protocol: Document 10/03/20 07:07 LP (Rec: 10/03/20 07:08 LP [id number]) Nutrition Notes 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 Error. Nutrition Intervention Revisit per MD consult or patient Sign Off request:
[2020-10-04] MEDS: INSULIN LISPRO 100 UNIT/ML SUB-Q SCH ×8 (09:30→22:57)
[2020-10-04] MEDS: LOSARTAN 50 MG TAB PO SCH (10:02)
[2020-10-04] MEDS: hydroCHLOROthiazide 25 MG TAB PO SCH (10:03)
[2020-10-04] MEDS: ASPIRIN EC 81 MG TAB PO SCH (10:04)
[2020-10-04] MEDS: ASCORBIC ACID 500 MG TAB PO SCH ×2 (10:05→22:35)
[2020-10-04] MEDS: CHOLECALCIFEROL (VIT D3) 1000 UNIT (25 mcg) TAB PO SCH (10:05)
[2020-10-04] MEDS: FAMOTIDINE 10 MG TAB PO SCH ×2 (10:05→22:37)
[2020-10-04] MEDS: HEPARIN 5,000 UNIT/1 ML VIAL SUB-Q SCH ×2 (10:05→22:36)
[2020-10-04] MEDS: ZINC SULFATE 220 MG CAP PO SCH ×2 (10:05→22:35)
[2020-10-04] MEDS: METOPROLOL SUCCINATE XL 100 MG TAB PO SCH (13:12)
--- NOTE | 2020-10-04 13:16 | Consultation ---
History of Present Illness - Reason for Consult Consult date: 10/04/20 COVID PUI Requesting physician: WILMAR GALLEGO - History of Present Illness The patient is a 75-year-old male with obesity, diabetes, hypertension was admitted to the hospital with generalized weakness, decreased exercise tolerance. Patient was also feeling short of breath and hence came to the ER. Noted to have hypoxia, chest x-ray showed possible pneumonia, COVID-19 test was ordered and has returned negative. Of note, patient received his second COVID- 19 vaccination on the day of admission. Labs revealed borderline leukocytosis of 11.6, D-dimer 753, LDH 391, ferritin 424, NT proBNP 285, procalcitonin 0.18, CRP 3.2. Review of Systems: General: no fevers,chills or rigors HEENT: no new visual disturbance Respiratory: mild cough, shortness of breath Cardiovascular: No chest pain, syncope Gastrointestinal: No nausea, vomiting or diarrhea Genitourinary: No dysuria or hematuria Musculoskeletal: No new or worsening neck pain or back pain Neurologic: No headaches, seizures Hematologic: No easy bruising or bleeding Endocrine: No night sweats or acute weight loss Skin: negative for rash, jaundice Psychiatric: No suicidal or homicidal ideation Past History Past Medical History: arthritis, diabetes, hypertension, other (See HPI) Past Surgical History: No surgical history, Other (Reviewed) Social history: , lives with family. denies: smoking, alcohol abuse, prescription drug abuse Family history: diabetes, hypertension Medications and Allergies Allergies Allergy/AdvReac Type Severity Reaction Status Date / Time No Known Allergies Allergy Verified 10/02/20 11:33 Home Medications Medication Instructions Recorded Confirmed Last Taken Type Aspirin [Adult Aspirin] 81 mg PO DAILY 10/02/20 10/02/20 10/02/20 History Dulaglutide [Trulicity] 0.5 ml SQ 1XW 10/02/20 10/02/20 Unknown History Empagliflozin/Metformin HCl 1 each PO QDAY 10/02/20 10/02/20 Unknown History [Synjardy 12.5-1,000 mg Tablet] Insulin Aspart (Nf) [NovoLOG 15 units SQ ACHS 10/02/20 10/02/20 Unknown History Flexpen] Insulin Glargine,Hum.rec.anlog 45 unit SQ QHS 10/02/20 10/03/20 Unknown History [Yola Kamarapen U-100] Nebivolol HCl [Bystolic] 10 mg PO QDAY 10/02/20 10/02/20 Unknown History dilTIAZem HCl [Diltiazem 24Hr ER 240 mg PO QDAY 10/02/20 10/02/20 Unknown History (Cd)] Active Meds: Active Medications Acetaminophen (Acetaminophen 325 Mg Tab) 650 mg PO Q4H PRN PRN Reason: Pain MILD(1-3)/Fever >100.5/FINNEGAN Albuterol (Albuterol 2.5 Mg/3 Ml Nebu) 2.5 mg IH Q4HRT PRN PRN Reason: Shortness Of Breath Ascorbic Acid (Ascorbic Acid 500 Mg Tab) 500 mg PO BID [facility] Last Admin: 10/04/20 10:05 Dose: 500 mg Documented by: Aspirin (Aspirin Ec 81 Mg Tab) 81 mg PO DAILY [facility] Last Admin: 10/04/20 10:04 Dose: 81 mg Documented by: Cholecalciferol (Cholecalciferol (Vit D3) 1000 Unit (25 Mcg) Tab) 1,000 unit PO QDAY [facility] Last Admin: 10/04/20 10:05 Dose: 1,000 unit Documented by: Diltiazem HCl (Diltiazem Cd 240 Mg Cap) 240 mg PO QDAY [facility] Last Admin: 10/03/20 12:05 Dose: 240 mg Documented by: Famotidine (Famotidine 10 Mg Tab) 10 mg PO BID [facility] Last Admin: 10/04/20 10:05 Dose: 10 mg Documented by: Heparin Sodium (Porcine) (Heparin 5,000 Unit/1 Ml Vial) 5,000 unit SUB-Q Q12HR [facility] Last Admin: 10/04/20 10:05 Dose: 5,000 unit Documented by: Hydrochlorothiazide (Hydrochlorothiazide 25 Mg Tab) 25 mg PO QDAY [facility] Last Admin: 10/04/20 10:03 Dose: 25 mg Documented by: Ceftriaxone Sodium (Rocephin/Ns 2 Gm/100 Ml) 2 gm in 100 mls @ 200 mls/hr IV Q24H [facility]; Protocol Last Admin: 10/03/20 18:41 Dose: 200 mls/hr Documented by: Azithromycin (Zithromax/Ns) 500 mg in 250 mls @ 250 mls/hr IV Q24H [facility]; Protocol Stop: 10/06/20 17:59 Last Admin: 10/03/20 18:33 Dose: 250 mls/hr Documented by: Insulin Glargine (Insulin Glargine 100 Units/Ml) [facility] Last Admin: 10/03/20 22:29 Dose: 45 units Documented by: Insulin Human Lispro (Insulin Lispro 100 Unit/Ml) 0 unit SUB-Q [facility]; Protocol Last Admin: 10/04/20 12:58 Dose: 6 unit Documented by: Insulin Human Lispro (Insulin Lispro 100 Unit/Ml) 15 unit SUB-Q [facility] Last Admin: 10/04/20 12:58 Dose: 15 unit Documented by: Losartan Potassium (Losartan 50 Mg Tab) 100 mg PO QDAY [facility] Last Admin: 10/04/20 10:02 Dose: 100 mg Documented by: Methylprednisolone Sodium Succinate (Methylprednisolone Sod Succinate 40 Mg/1 Ml Inj) 40 mg IV Q12H WALKER Metoprolol Succinate (Metoprolol Succinate Xl 100 Mg Tab) 100 mg PO QDAY [facility] Last Admin: 10/04/20 13:12 Dose: 100 mg Documented by: Miscellaneous Medication (Trulicity (Dulaglutide) 1.5 Mg/0.5 Ml) 0.5 each SUB-Q [facility] Last Admin: 10/03/20 13:00 Dose: 0.5 each Documented by: Miscellaneous Medication (Empagliflozin/Metformin Hcl [Synjardy 12.5-1,000 Mg Tablet]) 1 each PO QDAY [facility] Ondansetron HCl (Ondansetron 4 Mg/2 Ml Inj) 4 mg IV Q8H PRN PRN Reason: Nausea And Vomiting Sodium Chloride (Sodium Chloride 0.9% 10 Ml Flush Syringe) 10 ml IV BID [facility] Last Admin: 10/04/20 10:06 Dose: 10 ml Documented by: Sodium Chloride (Sodium Chloride 0.9% 10 Ml Flush Syringe) 10 ml IV PRN PRN PRN Reason: LINE FLUSH Zinc Sulfate (Zinc Sulfate 220 Mg Cap) 220 mg PO BID [facility] Last Admin: 10/04/20 10:05 Dose: 220 mg Documented by: Physical Examination - Physical Exam Narrative exam: Physical Exam: Constitutional: Alert, cooperative. No acute distress. Obese. Head, Ears, Nose: Normocephalic, atraumatic. External ears, nose normal Eyes: Conjunctivae/corneas clear. No icterus. No ptosis. Neck: Supple, no meningeal signs Cardiovascular: S1, S2 normal. Respiratory: AE fair, some rhonchi in R base GI: Soft, non-tender; bowel sounds normal. No peritoneal signs Musculoskeletal: No pedal edema, no cyanosis. Skin: No rash or abscess Hem/Lymphatic: No palpable cervical or supraclavicular nodes. No lymphangitis Psych: Mood ok. Affect normal Neurological: Awake, alert, oriented. No gross abnormality - Constitutional Vitals: Vital Signs Temp Pulse Resp BP Pulse Ox 97.6 F 68 24 143/56 95 10/04/20 11:20 10/04/20 11:20 10/04/20 11:20 10/04/20 11:20 10/04/20 11:20 Temperature -Last 24 Hours Temperature 97.6 F Temperature 97.6 F Temperature 97.7 F Temperature 97.6 F Results - Labs CBC & Chem 7: 10/03/20 04:51 10/03/20 04:51 Labs: Abnormal lab results 10/03/20 10/03/20 10/04/20 Range/Units 16:26 21:53 01:25 POC Glucose 288 H 219 H 191 H (70-105) mg/dL 10/04/20 10/04/20 Range/Units 06:37 07:40 POC Glucose 191 H 208 H (70-105) mg/dL - Imaging and Cardiology Chest x-ray: report reviewed, image reviewed CT scan - chest: report reviewed, image reviewed (small R pleural effusion.) Assessment and Plan Cultures: SARS-CoV-2 PCR 10/03/2020: Negative 10/02/2020 blood culture: No growth A/P: 75-year-old male with obesity, diabetes, hypertension was admitted to the hospital with generalized weakness, decreased exercise tolerance: #Fatigue: Could be side effect of COVID-19 vaccination. COVID-19 test is negative. No evidence of obvious pneumonia on CTA. #Possible Pneumonia, mild: CT imaging shows small R pleural effusion and po ssibly some fluid. No airbronchograms seen. Procal is also low. #Obesity hypoventilation syndrome: recently started wearing CPAP. #Diabetes mellitus type 2 Recs: -tomorrow, switch to P.O. Ceftin 500 mg BID + Azithromycin 500 mg daily x 3 more days -no indication for steroids from COVID standpoint since test is negative Giseal Simmons MD, FACP [facility] O: [phone] F: [phone]
[2020-10-04] MEDS: dilTIAZem CD 240 MG CAP PO SCH (14:36)
[2020-10-04] MEDS: cefTRIAXone/NS 2 GM/100 ML 2 GM/100 ML BAG IV SCH (17:55)
[2020-10-04] MEDS: AZITHROMYCIN/NS 500 MG/250 ML 500 MG/250 ML BAG IV SCH (19:15)
[2020-10-04] MEDS: INSULIN GLARGINE 100 UNITS/ML SUB-Q SCH (22:35)
[2020-10-05] MEDS: EMPAGLIFLOZIN PO SCH ×3 (02:40→09:25)
[2020-10-05] MEDS: [UNRECOGNIZED DRUG - OTHER] PO SCH ×3 (02:40→09:25)
[2020-10-05] MEDS: METFORMIN HCL PO SCH ×3 (02:40→09:25)
[2020-10-05] MEDS: methylPREDNISolone Sod Succinate 40 MG/1 ML INJ IV SCH (05:34)
[2020-10-05] MEDS: INSULIN LISPRO 100 UNIT/ML SUB-Q SCH ×6 (08:20→17:04)
[2020-10-05] MEDS: hydroCHLOROthiazide 25 MG TAB PO SCH (09:22)
[2020-10-05] MEDS: ASCORBIC ACID 500 MG TAB PO SCH (09:22)
[2020-10-05] MEDS: FAMOTIDINE 10 MG TAB PO SCH (09:22)
[2020-10-05] MEDS: ZINC SULFATE 220 MG CAP PO SCH (09:22)
[2020-10-05] MEDS: LOSARTAN 50 MG TAB PO SCH (09:23)
[2020-10-05] MEDS: ASPIRIN EC 81 MG TAB PO SCH (09:23)
[2020-10-05] MEDS: METOPROLOL SUCCINATE XL 100 MG TAB PO SCH (09:24)
[2020-10-05] MEDS: dilTIAZem CD 240 MG CAP PO SCH (09:24)
[2020-10-05] MEDS: CHOLECALCIFEROL (VIT D3) 1000 UNIT (25 mcg) TAB PO SCH (09:25)
[2020-10-05] MEDS: HEPARIN 5,000 UNIT/1 ML VIAL SUB-Q SCH (09:25)
[2020-10-05] MEDS ORDERED: AZITHROMYCIN 250 MG TAB PO SCH (10:00)
[2020-10-05 12:22] VITALS: BP 177/82
--- NOTE | 2020-10-05 12:56 | Discharge Summary ---
Providers - Providers Date of Admission: 10/02/20 17:09 Date of discharge: 10/05/20 Attending physician: CHENTE LARKIN MD 10/02/20 17:11 Consult to Physician [CONS] Routine Comment: Consulting Provider: MARICHUY EWING Physician Instructions: Reason For Exam: pui Primary care physician: ALISTAIR BUCHANAN Hospitalization Reason for admission: Acute hypoxemic respiratory failure, pneumonia, Obesity hypoventilation syn Condition: Stable Hospital course: History of present illness: 75 YO Male with DM, Obesity Hypoventilation Syndrome, OA, HTN, Metabolic Syndrome presents to ED for evaluation. Patient reports "I just do not feel good". Patient states that he has experienced generalized weakness, fatigue, malaise, decreased exercise tolerance, over the past 3 days with worsening symptoms over the past 6 hours. EMS was notified and upon arrival the patient was found to be in distress and placed on submental oxygen and subsequently transported to [facility] for further care and evaluation of the aforementioned symptoms. The patient was seen and evaluated in the emergency department. All lab and imaging studies reviewed. Patient was found to have a pulse oximetry of 86% on exertion which is consistent with acute hypoxemic respiratory failure. Chest x-ray revealed pneumonia. Patient was also found to have systemic inflammatory response syndrome. Patient admitted to medical floor and initiated on pneumonia protocol as well as coronavirus protocol. Patient denies fever, chills, chest pain, palpitations, productive cough, unilateral leg swelling, calf pain, prolonged travel/immobility, individual/family history of DVT/PE/bleeding/blood clotting disorders, skin rash, recent ill contacts, or known exposure to COVID-19. Patient received his first Covid vaccine 3 weeks ago, and got his second vaccine today. Prior admission on 06/26/2017 reviewed. All medication listed at time of admission has been reconciled. Advanced care planning conducted in ED. Hospital course Acute hypoxic respiratory failure Community-acquired pneumonia. COVID-19 negative. Obesity hypoventilation syndrome Diabetes mellitus type 2 Sepsis Osteoarthritis 10/03/2020. D-dimer was elevated but CTA of the chest revealed no evidence of PE. ABG reveals hypoxemia with a PO2 of 60.1. Chest x-ray with bilateral mild patchy consolidation consistent with likely COVID-19 infection. Await COVID-19 testing. ID consultation pending. Will likely need to start dexamethasone and possibly remdesivir. Initial inflammatory markers elevated with ferritin 424, LDH 391, CRP 3.2 and D-dimer 753. 10/04/2020. Covid testing negative. Consider repeat testing. Await ID consult ation. Continue IV antibiotics and Solu-Medrol. Wean Solu-Medrol. BG mildly elevated. Continue current regimen of Lantus 45 units at bedtime and 15 units of regular insulin with each meal. Patient currently stable with 3 L of oxygen and saturations at 96%. 10/05/2020; patient was evaluated by ID yesterday and recommend to change antibiotics to p.o. Ceftin and azithromycin for 3 days. No need for steroids. Patient was evaluated for home oxygen and his oxygen saturation went down to 87% and patient required home oxygen. I discussed with case management and case management is going to arrange home oxygen. Patient can be discharged with home oxygen. Patient has CPAP at home and advised to continue to use that. Patient advised to continue to take his home medications. Patient was hemodynamically stable at the time of discharge and patient was asking to be discharged home. 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 The patient is obese. Vital signs as documented. Head exam is unremarkable. No scleral icterus . Neck is without jugular venous distension, thyromegaly, or carotid bruits. Lungs are clear to auscultation. Cardiac exam reveals regular rate and Rhythm. Abdominal exam reveals normal bowel sounds, nontender, no organomegaly. Extremities are nonedematous and both femoral and pedal pulses are normal. 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 No focal weakness. - Constitutional Vitals: Temp Pulse Resp BP Pulse Ox 97.5 F L 65 18 177/82 91 03/09/21 11:09 10/05/20 11:09 10/05/20 11:09 10/05/20 11:09 10/05/20 11:09 Plan Activity: no restrictions Weight Bearing Status: Full Weight Bearing Diet: low salt, diabetic Special Instructions: home oxygen via (2 L of intranasal cannula) Follow up with: ALISTAIR BUCHANAN MD [Primary Care Provider] - 7 Days Prescriptions: cefUROXime [Ceftin] 500 mg PO Q12HR #12 tablet Nebulizer and Compressor [[place] Choice Nebulizer] 1 each MC Q4H #1 each ALBUTEROL NEB's [Proventil 0.083% NEBS] 2.5 mg IH Q4HRT PRN #60 nebu PRN Reason: Shortness Of Breath Azithromycin [Zithromax TAB] 500 mg PO QDAY #30 tablet
[2020-10-05] MEDS ORDERED: AZITHROMYCIN/NS 500 MG/250 ML 500 MG/250 ML BAG IV SCH (17:00)
== END 2020-10-05 19:00 | disposition home or self-care (01) | DRG 871 ==
LOC: ED 11:28 → 3A 17:09
PROVIDERS: ADMIT Internal Medicine; ATTEND Internal Medicine
DX: A41.9 Sepsis, unspecified organism (principal); J18.9 Pneumonia, unspecified organism; J96.01 Acute respiratory failure with hypoxia; E66.2 Morbid (severe) obesity with alveolar hypoventilation; Z20.822 Contact with and (suspected) exposure to COVID-19; M19.90 Unspecified osteoarthritis, unspecified site; I10 Essential (primary) hypertension; E11.9 Type 2 diabetes mellitus without complications; Z68.38 Body mass index [BMI] 38.0-38.9, adult; Z79.899 Other long term (current) drug therapy; Z79.4 Long term (current) use of insulin; Z79.82 Long term (current) use of aspirin; Z83.3 Family history of diabetes mellitus; Z82.49 Family history of ischemic heart disease and other diseases of the circulatory system
CPT/HCPCS: 36415; 71046; 71275; 80048; 80053; 81001; 82728; 82805; 82962; 83615; 83880; 84145; 84484; 85007; 85025; 85379; 85610; 85730; 86140; 87040; 93005; 94760; 96365; 96367; 96372; 96375; G0378; J0360; J0456; J0696; J1644; J1815; J2920; J2930; Q9967; U0003